=== PATIENT | male | born 1960 | race Caucasian/White ===

== ENCOUNTER 2020-01-09 11:04 | Outpatient (CLI) | payer OTHER, SELFPAY ==
--- NOTE | 2020-01-09 11:19 | MR_ITS ---
WS: [id number] MRI LUMBAR SPINE NONCONTRAST HISTORY: LOW BACK PAIN COMPARISON: None available. TECHNIQUE: Sagittal and axial multisequence imaging is submitted. Increase in upper thoracic kyphosis. Mild degenerative disc disease throughout the cervical and thora cic spine. No cord compression. L3 anterolisthesis by 7.4 mm. Severe disc desiccation and narrowing at the L3-4 level. The L3-4 disc extends cephalad along the posterior L3 vertebral body by 1.5 cm. Marrow edema in the adjacent endpla rachel of L3 and L4. Remaining disc spaces are well preserved with only mild desiccation. Conus terminates normally at L1-2 disc level. L1-L2: Normal. L2-L3: Diffuse annular disc bulging with mild encroachment upon the subarticular recesses. No signifi cant stenosis. L3-L4: Large cephalad disc extrusion greatest to the RIGHT of midline. Disc extrudes posterior to the L3 vertebral body. There is a large central broad-based disc herniation which is causing flattening of the ventral thecal sac and severe bilateral subarticular recess stenosis and moderate bilateral fo raminal stenosis. There is an additional RIGHT foraminal disc protrusion contacting the L3 nerve root . Marked thickening of the ligamentum flavum and fluid in the facet joints. L4-5: Mild annular disc bulging. Broad-based annular fissure beginning in the RIGHT foramen extending far lateral. There is contact and mild flattening of the ventral thecal sac and narrowing of the sub articular recesses and foramina. There is significant clumping of the nerve roots in the thecal sac. L5-S1: Moderate-sized LEFT paracentral disc protrusion with annular fissures. Significant contact on the LEFT S1 nerve root with posterior displacement. LEFT S1 nerve root is enlarged. There is fluid in the facet joints bilaterally. Mild atherosclerosis aorta slight dilatation of the 2.7 cm. MR/MR lumbar spine wo con* [id number] IMPRESSION: 1. Severe degenerative disc disease at L3-4 with grade 1 spondylolisthesis of L3. 2. Large central disc protrusion at L3-4 extends into the subarticular recess with a large extruded component extending cephalad to L3. Additional RIGHT fora jeanine disc protrusion at the L3-4 level. There is severe central, subarticular recess and moderate bilateral foraminal stenosis at this level. 3. Fluid in the facet joints and marked facet arthropathy at L3-4. 4. Below the L3-4 level there is clumping of the nerve roots from arachnoiditi s. 5. Moderate LEFT paracentral disc protrusion with annular fissures at L5-S1 wi th significant contact and displacement of the LEFT S1 nerve root. 6. Mild foraminal subarticular recess stenosis at L4-5.
== END 2020-01-09 11:05 | disposition home or self-care (01) ==
LOC: RADWPI 11:12
PROVIDERS: Family Provider Nurse Practitioner; PCP Nurse Practitioner; Visit Provider Nurse Practitioner
DX: M47.896 Other spondylosis, lumbar region (principal); M51.26 Other intervertebral disc displacement, lumbar region
CPT/HCPCS: 72148

== ENCOUNTER 2020-06-04 08:50 | Outpatient (CLI) | payer OTHER, SELFPAY ==
--- NOTE | 2020-06-04 08:59 | MR_ITS ---
WS: [id number] MRI LUMBAR SPINE NONCONTRAST HISTORY: LOW BACK PAIN COMPARISON: 01/09/2020 TECHNIQUE: Sagittal and axial multisequence imaging is submitted. Increase in cervical lordosis and thoracic kyphosis. Significant straightening of the lumbar lordosis. L3 anterolisthesis by 7 mm is similar to the prior study. Severe disc space narrowing at L3-4 with marrow edema in the posterior L3 vertebral body. No f ractures. The remaining disc spaces are mildly desiccated. Conus terminates normally at L1-2 disc level. L1-L2: Normal. L2-L3: Mild annular disc bulging without stenosis. L3-L4: Annular disc bulging with a large extruded disc protrusion extending cephalad from the disc sp belkis posterior to L3. Severe ligamentum flavum hypertrophy and facet arthropathy with facet arthritis. There is significant central, subarticular recess and foraminal stenosis bilaterally. The extruded d isc is causing significant mass effect upon the L3 and L4 nerve roots. Similar to the prior study. Be low the disc level there is clumping of the nerve roots in the thecal sac from arachnoiditis. L4-L5: Mild annular disc bulging and facet arthritis. Only mild bilateral foraminal narrowing. Again noted is a RIGHT foraminal annular fissures. L5-S1: Annular disc bulging with a moderate-sized central to LEFT paracentral disc protrusion. Associ ated osteophyte is also causing contact on the ventral thecal sac and posterior displacement of the L EFT S1 nerve root. As compared to the prior study no significant change. Atherosclerosis of aorta. Infrarenal aorta measures 2.9 cm. There is additional bulging and increased diameter of the proximal RIGHT common iliac artery 3.1 cm. MR/MR lumbar spine wo con* [id number] IMPRESSION: 1. Continued severe central, subarticular recess and bilateral foraminal steno sis at L3-4 as described on 01/09/2020. 2. Central extruded disc protrusion at L3-4 with significant contact on the L3 and L4 nerve roots. 3. Central to LEFT paracentral moderate disc protrusion at L5-S1 with displace ment of the LEFT S1 nerve root is unchanged. 4. Mild ectasia and dilatation of the infrarenal aorta. 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 Consider follow-up CT angiogram abdominal aorta and common iliac arteries. 5. 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
== END 2020-06-04 08:51 | disposition home or self-care (01) ==
LOC: RADSHAW 08:52
PROVIDERS: PCP Nurse Practitioner; Visit Provider Nurse Practitioner
DX: M48.061 Spinal stenosis, lumbar region without neurogenic claudication (principal); I77.810 Thoracic aortic ectasia; M51.27 Other intervertebral disc displacement, lumbosacral region; I72.3 Aneurysm of iliac artery; G03.9 Meningitis, unspecified
CPT/HCPCS: 72148

== ENCOUNTER → 2020-11-18 16:15 | Outpatient (BNVA) | payer OTHER, SELFPAY | PROVIDERS: PCP Nurse Practitioner; Visit Provider Podiatrist Foot & Ankle Surgery | DX: Q66.02 Congenital talipes equinovarus, left foot (principal); M79.672 Pain in left foot; M25.372 Other instability, left ankle; M19.072 Primary osteoarthritis, left ankle and foot | CPT/HCPCS: 73620; 73630 ==

== ENCOUNTER 2020-11-18 16:34 | Outpatient (CLI) | payer OTHER, SELFPAY | END 2020-11-18 16:35 | disposition home or self-care (01) | LOC: SPT 16:34 | PROVIDERS: PCP Nurse Practitioner; Visit Provider Podiatrist Foot & Ankle Surgery | DX: Z46.89 Encounter for fitting and adjustment of other specified devices (principal); M25.372 Other instability, left ankle | CPT/HCPCS: 97760; L4361 ==

== ENCOUNTER → 2021-01-05 13:50 | Outpatient (BNVA) | payer OTHER, SELFPAY | PROVIDERS: PCP Nurse Practitioner; Visit Provider Internal Medicine | DX: C61 Malignant neoplasm of prostate (principal); E11.65 Type 2 diabetes mellitus with hyperglycemia; E27.8 Other specified disorders of adrenal gland; I10 Essential (primary) hypertension | CPT/HCPCS: 99205 ==

== ENCOUNTER → 2021-02-24 16:09 | Outpatient (BNVA) | payer OTHER, SELFPAY | PROVIDERS: PCP Nurse Practitioner; Visit Provider Podiatrist Foot & Ankle Surgery | DX: M79.672 Pain in left foot (principal); Q66.02 Congenital talipes equinovarus, left foot; M25.372 Other instability, left ankle | CPT/HCPCS: 73610 ==

== ENCOUNTER → 2021-07-24 13:17 | Outpatient (BNVA) | payer OTHER, SELFPAY | PROVIDERS: PCP Nurse Practitioner; Visit Provider Podiatrist Foot & Ankle Surgery | DX: M79.672 Pain in left foot (principal); M25.372 Other instability, left ankle; M19.072 Primary osteoarthritis, left ankle and foot | CPT/HCPCS: 73610; 73630 ==

== ENCOUNTER 2021-08-05 13:09 | Outpatient (CLI) | payer OTHER, MEDICAID, SELFPAY ==
--- NOTE | 2021-08-05 13:30 | CT_ITS ---
WS: [id number] CT scan of the abdomen and pelvis with and without IV contrast. Additional two-dimensional coronal an d sagittal reconstruction was performed. Delayed imaging of 1 minute and 15 minute postinjection was obtained. 08/05/2021 Clinical Data: see if any change in size Comparison: None. DLP: 1863.[address] scans at [facility] use at least one of these dose optimization techniques: automated e xposure control; mA and/or kV adjustment per patient size (includes targeted exams where dose is matc hed to clinical indication); or iterative reconstruction. Findings: The lower lungs show no nodules, masses or effusions. The liver, gallbladder, spleen and pancreas are normal. The right adrenal gland measures 1.5 cm the left 3.0 cm. On the preliminary imaging they both show lo w density. There is little enhancement after the intravenous contrast is given. Both these entities a re probable adenomas. The kidneys show equal bilateral contrast excretion with a nonobstructing 0.3 cm right renal calculus and a left renal cortical cyst. No hydronephrosis or renal masses are seen. Abdominal aorta is johnnie l in size with an aortic stent graft. No appendicitis or diverticulitis is seen. No abscess, adenopathy, ascites, mass, obstruction or free air is seen. The bladder is unremarkable. No inguinal hernia is seen. The patient has a right hip arthroplasty. There is degenerative disc narrowing at L3-L4 and L5-S1 wit h 0.5 cm subluxation of L3 on L4. CT/CT abdomen pelvis wo/w [id number] Impression: 1. Probable bilateral renal adenomas, right measuring 1.5 cm and left 3.0 cm. 2. Negative for acute intra-abdominal or pelvic abnormalities.
[2021-08-05 13:51] LABS: Blood Urea Nitrogen 17 mg/dL (8-23); Glomerular Filtration Rate 56.1 mL/min (90-130)
== END 2021-08-05 13:10 | disposition home or self-care (01) ==
PROVIDERS: PCP Nurse Practitioner; Visit Provider Internal Medicine
DX: E27.8 Other specified disorders of adrenal gland (principal); E11.65 Type 2 diabetes mellitus with hyperglycemia
CPT/HCPCS: 74178; 82565; 84520; Q9967

== ENCOUNTER 2021-09-29 10:03 | Emergency (ER) | payer OTHER, MEDICAID, SELFPAY ==
[2021-09-29 10:08] VITALS: BP 165/93; PULSE 114; RESP 24; TEMP 36.7; O2SAT 88
--- NOTE | 2021-09-29 10:18 | W.ED.SOB ---
Documented by User: CAITLYN Ward 09/29/21 10:55 HPI - SOB/Dyspnea General: Chief Complaint: Shortness of Breath/Dyspnea Stated Complaint: TROUBLE BREATHING/LOW O2/RIGHT LUNG COMPLICATIONS Time Seen by Provider: 09/29/21 10:09 Source: patient and family Mode of arrival: ambulatory Limitations: no limitations History of Present Illness: HPI Narrative: Patient is a nice 60-year-old male with a history of COPD here after he was sent from the [place] for concerns of hypoxia and abnormal CXR findings. Patient tells me he was told by the [place] that his right lung is full . Patient states he normally does not require oxygen for his COPD. He apparently was satting at 85% while at the [place] on room air. Patient tells me they recently switched his COPD inhaler from Spiriva to another inhaler which he does not remember the name of and states it all went downhill from there . He is complaining of shortness of breath at rest and significantly worsens with any form of exertion. No chest pain. He states he feels lousy . He does not complain of nasal congestion, rhinorrhea, significantly worse cough, or fevers. No known sick contacts. He is unvaccinated for COVID. MD elicited complaint: shortness of breath Pertinent past history: COPD Onset (ago): day(s) Timing: constant Severity: moderate Exacerbating factors: exertion Relieving factors: nothing Known history of: COPD Associated symptoms: Reports dizziness and myalgias; Deny abdominal pain, chest pain, fever(s), hemoptysis, lightheadedness, nausea, palpitations, syncope or vomiting Treatment prior to arrival: none Related Data: Home oxygen amount: none Review of Systems Const: Reports: body aches, fatigue and malaise; Denies: fever(s) or chills Eyes: Denies: change in vision or blurry vision ENMT: Denies: throat pain, odynophagia, nasal discharge or nasal congestion Card: Reports: dyspnea on exertion; Denies: chest pain, palpitations, irregular heart rhythm, edema, swelling of feet/ankles, lightheadedness, syncope, pre-syncope or leg pain with exertion Resp: Reports: dyspnea; Denies: wheezing or hemoptysis GI: Denies: abdominal pain, nausea, vomiting or diarrhea Musc: Denies: neck pain or back pain Skin/Breast: Denies: rash Neuro: Reports: dizziness; Denies: headache(s) PFSH ED PFSH: Medical History COPD (chronic obstructive pulmonary disease) Emphysema lung Hernia Hypertension Prostate cancer Thoracic stomach hernia Surgical History H/O exploratory thoracotomy H/O heart surgery History of right hip replacement History of surgery on upper extremity Family History Mother Cancer Father CAD (coronary artery disease) Social History Quit status (tobacco): not considering quitting Second hand smoke exposure: Yes Smoking risk assessment/counseling performed?: Yes Alcohol intake: current Alcohol intake frequency: few times a week Alcohol type: beer Desire information about alcohol rehabilitation?: No Counseling given: Yes Desire information about substance/drug rehabilitation?: No Counseling given: Yes Adopted: Yes Caregiver/support person: No Lives independently: Yes Household members: none Housing: Apartment Marital status: Single Number of children: 0 Highest education level completed: GED or Equivalent service: Yes Current occupational status: disabled Pets and animals: Yes History of recent travel: No Leisure activites: sports, exercise, clubs, art, music, games, hunting, fishing, reading and volunteer work Sexually active: Yes Current gender identity: Male Pratima/Mandaeism: [employer] Special pratima needs: No Agree to transfusion: Yes Financial difficulty paying for basics: Not Very Hard Physical Exam Const: COMMON NORMALS: average body habitus, patient oriented x3, no limitations, healthy appearing, alert and well nourished GENERAL APPEARANCE: cooperative and in distress (respiratory failure with hypoxia; pt is tachycardic and hypoxic on RA) ORIENTATION/CONSCIOUSNESS: Yes awake, Yes oriented to person, Yes oriented to place and Yes oriented to time HENMT: COMMON NORMALS: normocephalic and atraumatic HEAD & SCALP: normocephalic and atraumatic Resp: COMMON NORMALS: normal respiratory effort and clear to auscultation bilaterally AUSCULTATION: clear to auscultation bilaterally OTHER: pt 88% on RA; placed on 2L NC and now at 93% Cardio: COMMON NORMALS: regular rhythm RATE: tachycardic RHYTHM: regular rhythm Extremity: COMMON NORMALS: normal to inspection and no calf tenderness Neuro: KACEY COMA SCALE: document GCS findings [place] coma scale eye opening: Spontaneous [place] coma scale verbal response: Orientated Kacey coma scale motor response: Obey commands [place] coma scale total score: 15 COMMON NORMALS: patient oriented x3 SENSORIUM/ORIENTATION: Yes alert, Yes oriented to person, Yes oriented to place and Yes oriented to time Skin: COMMON NORMALS: no rashes or lesions noted GENERAL SKIN EXAM: no rashes or lesions noted Course Vital Signs: Vital signs: Vital Signs Temperature 98.0 F 09/29/21 10:08 Pulse Rate 114 H 09/29/21 10:08 Respiratory Rate 24 H 09/29/21 10:08 Blood Pressure 165/93 09/29/21 10:08 Pulse Oximetry 88 L 09/29/21 10:08 MDM - SOB/Dyspnea MDM Narrative: Medical decision making narrative: Patient will be signed out to Dr. Xavier as he is an ALEC 2. Lab Data: Labs: Lab Results 09/29/21 09/29/21 09/29/21 10:42 10:42 10:42 WBC 12.2 10^3/uL H 10 ^3/uL (4.0-10.0) RBC 5.14 10^6/uL 10^6 /uL (4.1-5.3) Hgb 15.1 g/dL g/dL (11.7-16.6) Hct 46.0 % % (42.0-52.0) MCV 89.5 fl fl (80-94) MCH 29.4 pg pg (28.0-34.0) MCHC 32.8 g/dL g/dL (30.0-36.0) RDW 13.4 % % (12.1-15.1) Plt Count 271 10^3/cmm 10^3 /cmm (130-400) MPV 10.1 fL fL (7.4-10.4) Neut % (Auto) 53.5 % % Lymph % (Auto) 33.3 % % [place] % (Auto) 8.5 % % Eos % (Auto) 3.7 % % Baso % (Auto) 0.6 % % Neut # (Auto) 6.51 10^3/uL 10^3 /uL (1.8-7.7) Lymph # (Auto) 4.1 10^3/uL 10^3/ uL (0.8-4.8) [place] # (Auto) 1.0 10^3/uL H 10^ 3/uL (0.2-0.9) Eos # (Auto) 0.5 10^3/uL 10^3/ uL (0.0-0.8) Baso # (Auto) 0.1 10^3/uL 10^3/ uL (0.0-0.1) Nucleated RBC % (a uto) 0 % % Nucleated RBCs # 0.0 /100WBC /100W BC Sodium 139 mmol/L mmol/L (136-145) Potassium 3.8 mmol/L mmol/L (3.5-5.1) Chloride 101 mmol/L mmol/L (98-107) Carbon Dioxide 25 mmol/L mmol/L (22-29) Anion Gap 16.8 (5-19) BUN 20 mg/dL mg/dL (8-23) Creatinine 1.4 mg/dL H mg/dL (0.7-1.2) GFR Calculation 51.5 mL/min L mL/ min (90-130) Glucose 148 mg/dL H mg/dL (65-115) Calculated Osmolal ity 293 mOsm/kg mOsm/ kg (285-295) Lactic Acid 0.7 mmol/L mmol/L (0.5-2.2) Calcium 8.8 mg/dL mg/dL (8.5-10.5) Total Bilirubin 0.2 mg/dL mg/dL (0.15-1.2) AST 23 U/L U/L (0-40) ALT 19 U/L U/L (0-41) Alkaline Phosphata se 116 IU/L IU/L (40-130) Troponin T Baselin e Troponin T [address] [place] Troponin T Total Protein 6.5 g/dL L g/dL (6.6-8.7) Albumin 3.9 g/dL g/dL (3.5-5.2) Globulin 2.6 g/dL g/dL (1.3-4.6) Procalcitonin 3.78 ng/mL H ng/m L (0-0.5) SARS-CoV-2 Ag (Rap id) 09/29/21 09/29/21 09/29/21 10:42 11:30 12:06 WBC RBC Hgb Hct MCV MCH MCHC RDW Plt Count MPV Neut % (Auto) Lymph % (Auto) [place] % (Auto) Eos % (Auto) Baso % (Auto) Neut # (Auto) Lymph # (Auto) [place] # (Auto) Eos # (Auto) Baso # (Auto) Nucleated RBC % (a uto) Nucleated RBCs # Sodium Potassium Chloride Carbon Dioxide Anion Gap BUN Creatinine GFR Calculation Glucose Calculated Osmolal ity Lactic Acid Calcium Total Bilirubin AST ALT Alkaline Phosphata se Troponin T Baselin e 43 ng/L H ng/L (0-15) Troponin T [address] [place] 41.39 ng/L H ng/L (0-15) Delta Troponin T -1.61 ABS# L ABS# (0-10) Total Protein Albumin Globulin Procalcitonin SARS-CoV-2 Ag (Rap id) Negative (Negative) Imaging Data^: CXR: Radiologist's impression: [address] [id number] ReportSigned Patient: Theodora Sanchez #: [id number]: 1960Acct#:[id number]/Sex: 60 / MADM Date: 09/29/21Loc: [facility]/Bed:Attending Dr: Ordering Provider/Ordering MD: Bianca Gray Date of Service: 09/29/21 Procedure(s): XR chest 1V portable [id number] Accession Number(s): [id number] Report Number: [id number] PROCEDURE INFORMATION: Exam: XR Chest Exam date and time: 09/29/2021 10:17 AM Age: 60 years old Clinical indication: Condition or disease; Lung condition and disease; Copd; Complications not specified; Additional info: Hypoxia, copd TECHNIQUE: Imaging protocol: XR of the chest. Views: 1 view. COMPARISON: CT abdomen pelvis wo/w [id number] 08/05/2021 1:56 PM FINDINGS: Lungs: A few small benign calcified granulomas are present in the lungs. There are no acute pulmonary infiltrates. Pleural spaces: Unremarkable. No pleural effusion. No pneumothorax. Heart/Mediastinum: The heart is not enlarged for the AP projection. Benign calcified lymph nodes are present in the pulmonary garima and mediastinum. Bones/joints: Unremarkable. XR/XR chest 1V portable [id number] IMPRESSION: No acute abnormalities are seen in the chest. Radiation Dose CTDIVOL = (mGy): DLP = (mGy-cm) Dictated By:Juventino Verdugo By:Juventino Verdugo Date/Time:09/29/21 1054DD/ 1017 Discharge Plan Discharge Patient Disposition: Left Against Medical Advice Clinical Impression: Hypoxia, COPD (chronic obstructive pulmonary disease), Clinical diagnosis of COVID-19 Prescriptions: No Action (DME) Non Articulating AFO See Rx Instructions .Route .MEDSUPPLY Qty: 1 RF: 0 (DME) Accu-Chek SmartView Test Strip Strip See Rx Instructions .Route Qty: 100 RF: 3 amlodipine 10 mg tablet 10 mg PO QAM RF: 0 omeprazole 40 mg capsule,delayed release(DR/EC) 40 mg PO DAILY RF: 0 multivitamin Tablet 1 tab PO DAILY RF: 0 hydrochlorothiazide 25 mg tablet 25 mg PO QAM RF: 0 (DME) non articulating AFO See Rx Instructions .Route .MEDSUPPLY Qty: 1 RF: 0 (DME) Diabetic shoes with inserts See Rx Instructions .Route .MEDSUPPLY Qty: 1 RF: 0 (DME) cam boot See Rx Instructions .Route .MEDSUPPLY Qty: 1 RF: 0 Lantus U-100 Insulin 100 unit/mL solution 36 unit SUBCUT QAM RF: 0 (DME) Crutch bottoms bilaterally See Rx Instructions .Route .MEDSUPPLY Qty: 1 RF: 0 (DME) Diabetic shoes See Rx Instructions .Route .MEDSUPPLY Qty: 1 RF: 0 celecoxib 200 mg Capsule 200 mg PO BID RF: 0 Advair Diskus 250-50 mcg/dose Blister With Device 1 inh INHALATION BID RF: 0 allopurinol 100 mg Tablet 100 mg PO DAILY RF: 0 sildenafil 100 mg Tablet 100 mg PO PRN PRN (Reason: Erectile Dysfunction) RF: 0 metformin 1,000 mg Tablet 500 mg PO QAM RF: 0 gabapentin 100 mg Capsule 100 mg PO TID RF: 0 albuterol sulfate 90 mcg/actuation Hfa Aerosol Inhaler 2 puff INHALATION QID PRN (Reason: Shortness Of Breath) RF: 0 Vitamin D3 25 mcg (1,000 unit) Capsule 25 mcg PO DAILY RF: 0 Fish Oil Capsule 500 mg PO BID RF: 0 Referrals: [facility] [Primary Care Provider] - Sign Out Sign Out Data: Patient Sign Out occurred on 09/29/21 at 10:40. Patient's care was discussed, and care was transferred from to Rodney Xavier DO. Coding Level of Care Code ED Equipment Operat0R for Chg Fwd Exam Detailed Documented by User: Rodney Xavier DO 10/05/21 15:10 HPI - SOB/Dyspnea General: Chief Complaint: Shortness of Breath/Dyspnea Stated Complaint: TROUBLE BREATHING/LOW O2/RIGHT LUNG COMPLICATIONS Time Seen by Provider: 09/29/21 10:09 PFSH ED PFSH: Medical History COPD (chronic obstructive pulmonary disease) Emphysema lung Hernia Hypertension Prostate cancer Thoracic stomach hernia Surgical History H/O exploratory thoracotomy H/O heart surgery History of right hip replacement History of surgery on upper extremity Family History Mother Cancer Father CAD (coronary artery disease) Social History Quit status (tobacco): not considering quitting Second hand smoke exposure: Yes Smoking risk assessment/counseling performed?: Yes Alcohol intake: current Alcohol intake frequency: few times a week Alcohol type: beer Desire information about alcohol rehabilitation?: No Counseling given: Yes Desire information about substance/drug rehabilitation?: No Counseling given: Yes Adopted: Yes Caregiver/support person: No Lives independently: Yes Household members: none Housing: Apartment Marital status: Single Number of children: 0 Highest education level completed: GED or Equivalent service: Yes Current occupational status: disabled Pets and animals: Yes History of recent travel: No Leisure activites: sports, exercise, clubs, art, music, games, hunting, fishing, reading and volunteer work Sexually active: Yes Current gender identity: Male Pratima/Mandaeism: [employer] Special pratima needs: No Agree to transfusion: Yes Financial difficulty paying for basics: Not Very Hard Course Vital Signs: Vital signs: Vital Signs Temperature 98.0 F 09/29/21 10:08 Pulse Rate 114 H 09/29/21 10:08 Respiratory Rate 24 H 09/29/21 10:08 Blood Pressure 165/93 09/29/21 10:08 Pulse Oximetry 88 L 09/29/21 10:08 MDM - SOB/Dyspnea MDM Narrative: Medical decision making narrative: Care assumed from Bianca Gray due to presumed diagnosis. His oxygen saturations are low respected COVID will need to be admitted patient became frustrated he felt he should only have a chest x-ray and be able to leave discussed with him was concerned he had COVID that he was needing oxygen that he should stay he does not want to stay, and I was unable to convince him not to leave. Ultimately he left AGAINST MEDICAL ADVICE. Lab Data: Labs: Lab Results 09/29/21 09/29/21 09/29/21 10:42 10:42 10:42 WBC 12.2 10^3/uL H 10 ^3/uL (4.0-10.0) RBC 5.14 10^6/uL 10^6 /uL (4.1-5.3) Hgb 15.1 g/dL g/dL (11.7-16.6) Hct 46.0 % % (42.0-52.0) MCV 89.5 fl fl (80-94) MCH 29.4 pg pg (28.0-34.0) MCHC 32.8 g/dL g/dL (30.0-36.0) RDW 13.4 % % (12.1-15.1) Plt Count 271 10^3/cmm 10^3 /cmm (130-400) MPV 10.1 fL fL (7.4-10.4) Neut % (Auto) 53.5 % % Lymph % (Auto) 33.3 % % [place] % (Auto) 8.5 % % Eos % (Auto) 3.7 % % Baso % (Auto) 0.6 % % Neut # (Auto) 6.51 10^3/uL 10^3 /uL (1.8-7.7) Lymph # (Auto) 4.1 10^3/uL 10^3/ uL (0.8-4.8) [place] # (Auto) 1.0 10^3/uL H 10^ 3/uL (0.2-0.9) Eos # (Auto) 0.5 10^3/uL 10^3/ uL (0.0-0.8) Baso # (Auto) 0.1 10^3/uL 10^3/ uL (0.0-0.1) Nucleated RBC % (a uto) 0 % % Nucleated RBCs # 0.0 /100WBC /100W BC Sodium 139 mmol/L mmol/L (136-145) Potassium 3.8 mmol/L mmol/L (3.5-5.1) Chloride 101 mmol/L mmol/L (98-107) Carbon Dioxide 25 mmol/L mmol/L (22-29) Anion Gap 16.8 (5-19) BUN 20 mg/dL mg/dL (8-23) Creatinine 1.4 mg/dL H mg/dL (0.7-1.2) GFR Calculation 51.5 mL/min L mL/ min (90-130) Glucose 148 mg/dL H mg/dL (65-115) Calculated Osmolal ity 293 mOsm/kg mOsm/ kg (285-295) Lactic Acid 0.7 mmol/L mmol/L (0.5-2.2) Calcium 8.8 mg/dL mg/dL (8.5-10.5) Total Bilirubin 0.2 mg/dL mg/dL (0.15-1.2) AST 23 U/L U/L (0-40) ALT 19 U/L U/L (0-41) Alkaline Phosphata se 116 IU/L IU/L (40-130) Troponin T Baselin e Troponin T [address] [place] Troponin T Total Protein 6.5 g/dL L g/dL (6.6-8.7) Albumin 3.9 g/dL g/dL (3.5-5.2) Globulin 2.6 g/dL g/dL (1.3-4.6) Procalcitonin 3.78 ng/mL H ng/m L (0-0.5) SARS-CoV-2 Ag (Rap id) 09/29/21 09/29/21 09/29/21 10:42 11:30 12:06 WBC RBC Hgb Hct MCV MCH MCHC RDW Plt Count MPV Neut % (Auto) Lymph % (Auto) [place] % (Auto) Eos % (Auto) Baso % (Auto) Neut # (Auto) Lymph # (Auto) [place] # (Auto) Eos # (Auto) Baso # (Auto) Nucleated RBC % (a uto) Nucleated RBCs # Sodium Potassium Chloride Carbon Dioxide Anion Gap BUN Creatinine GFR Calculation Glucose Calculated Osmolal ity Lactic Acid Calcium Total Bilirubin AST ALT Alkaline Phosphata se Troponin T Baselin e 43 ng/L H ng/L (0-15) Troponin T [address] [place] 41.39 ng/L H ng/L (0-15) Delta Troponin T -1.61 ABS# L ABS# (0-10) Total Protein Albumin Globulin Procalcitonin SARS-CoV-2 Ag (Rap id) Negative (Negative) Discharge Plan Discharge Patient Disposition: Left Against Medical Advice Clinical Impression: Hypoxia, COPD (chronic obstructive pulmonary disease), Clinical diagnosis of COVID-19 Prescriptions: No Action (DME) Non Articulating AFO See Rx Instructions .Route .MEDSUPPLY Qty: 1 RF: 0 (DME) Accu-Chek SmartView Test Strip Strip See Rx Instructions .Route Qty: 100 RF: 3 amlodipine 10 mg tablet 10 mg PO QAM RF: 0 omeprazole 40 mg capsule,delayed release(DR/EC) 40 mg PO DAILY RF: 0 multivitamin Tablet 1 tab PO DAILY RF: 0 hydrochlorothiazide 25 mg tablet 25 mg PO QAM RF: 0 (DME) non articulating AFO See Rx Instructions .Route .MEDSUPPLY Qty: 1 RF: 0 (DME) Diabetic shoes with inserts See Rx Instructions .Route .MEDSUPPLY Qty: 1 RF: 0 (DME) cam boot See Rx Instructions .Route .MEDSUPPLY Qty: 1 RF: 0 Lantus U-100 Insulin 100 unit/mL solution 36 unit SUBCUT QAM RF: 0 (DME) Crutch bottoms bilaterally See Rx Instructions .Route .MEDSUPPLY Qty: 1 RF: 0 (DME) Diabetic shoes See Rx Instructions .Route .MEDSUPPLY Qty: 1 RF: 0 celecoxib 200 mg Capsule 200 mg PO BID RF: 0 Advair Diskus 250-50 mcg/dose Blister With Device 1 inh INHALATION BID RF: 0 allopurinol 100 mg Tablet 100 mg PO DAILY RF: 0 sildenafil 100 mg Tablet 100 mg PO PRN PRN (Reason: Erectile Dysfunction) RF: 0 metformin 1,000 mg Tablet 500 mg PO QAM RF: 0 gabapentin 100 mg Capsule 100 mg PO TID RF: 0 albuterol sulfate 90 mcg/actuation Hfa Aerosol Inhaler 2 puff INHALATION QID PRN (Reason: Shortness Of Breath) RF: 0 Vitamin D3 25 mcg (1,000 unit) Capsule 25 mcg PO DAILY RF: 0 Fish Oil Capsule 500 mg PO BID RF: 0 Referrals: [facility] [Primary Care Provider] - Sign Out Sign Out Data: Patient Sign Out occurred on 09/29/21 at 10:40. Patient's care was discussed, and care was transferred from to Rodney aXvier DO. Coding Level of Care Code ED Equipment Operat0R for Chg Fwd Exam Detailed
--- NOTE | 2021-09-29 10:28 | ECG_ITS ---
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 Measurements Intervals [place] Rate: 105 P: 55 CO: 160 QRS: 56 QRSD: 93 T: 74 QT: 381 QTc: 504 Interpretive Statements SINUS TACHYCARDIA POSSIBLE LEFT ATRIAL ENLARGEMENT [-0.1mV P-WAVE IN V1/V2] ABNORMAL RHYTHM ECG No previous ECG available for comparison Electronically Signed On 09-29-2021 17:56:58 [employer] by Narda Ann M.D. [id number]
[2021-09-29 10:51] LABS: Basophils # 0.1 10^3/uL (0.0-0.1); Basophils % 0.6 %; Eosinophils # 0.5 10^3/uL (0.0-0.8); Eosinophils % 3.7 %; Hemoglobin 15.1 g/dL (11.7-16.6); Lymphocytes # 4.1 10^3/uL (0.8-4.8); Lymphocytes % 33.3 %; Mean Corpuscular HGB Conc 32.8 g/dL (30.0-36.0); Mean Corpuscular Hemoglobin 29.4 pg (28.0-34.0); Mean Corpuscular Volume 89.5 fl (80-94); Mean Platelet Volume 10.1 fL (7.4-10.4); Monocytes % 8.5 %; Neutrophils # 6.51 10^3/uL (1.8-7.7); Neutrophils % 53.5 %; Nucleated Red Blood Cells % 0 %; Platelet Count 271 10^3/cmm (130-400); Red Blood Count 5.14 10^6/uL (4.1-5.3); Red Cell Distribution Width 13.4 % (12.1-15.1); White Blood Count 12.2 10^3/uL (4.0-10.0)
[2021-09-29 11:07] LABS: Lactic Sepsis W/Reflex 0.7 mmol/L (0.5-2.2)
[2021-09-29 11:09] LABS: Alanine Aminotransferase 19 U/L (0-41); Albumin Level 3.9 g/dL (3.5-5.2); Alkaline Phosphatase 116 IU/L (40-130); Aspartate Amino Transferase 23 U/L (0-40); Blood Urea Nitrogen 20 mg/dL (8-23); Calcium 8.8 mg/dL (8.5-10.5); Carbon Dioxide 25 mmol/L (22-29); Chloride 101 mmol/L (98-107); Globulin 2.6 g/dL (1.3-4.6); Glomerular Filtration Rate 51.5 mL/min (90-130); Glucose 148 mg/dL (65-115); Osmolality Calculated 293 mOsm/kg (285-295); Sodium 139 mmol/L (136-145); Total Bilirubin 0.2 mg/dL (0.15-1.2); Total Protein 6.5 g/dL (6.6-8.7)
[2021-09-29 11:16] LABS: Procalcitonin 3.78 ng/mL (0-0.5)
[2021-09-29 11:17] LABS: Anion Gap 16.8 (5-19); Potassium 3.8 mmol/L (3.5-5.1); Troponin(5th) Baseline 43 ng/L (0-15)
--- NOTE | 2021-09-29 11:31 | PC.PHAR ---
pt states he takes care of his own medications-pt states he takes the medications entered-pts va med list had the pt takes niacin er 500mg bid pt states he doesnt take that medication-pt states he uses 36 units qam of lantus pts va med list has 32 units daily and 65 units daily pt states his blood sugar had been all over the place but states he is now using 36 units qam
[2021-09-29 11:50] LABS: Slide Review Slide Review Perform
[2021-09-29 12:56] LABS: Troponin 5 2HR 41.39 ng/L (0-15)
[2021-09-29 13:02] LABS: Troponin 5 2HR Delta -1.61 ABS# (0-10)
[2021-09-29 13:15] LABS: SARS Covid-2 Antigen Negative (Negative)
== END 2021-09-29 12:40 | disposition left against medical advice (07) ==
PROVIDERS: Physician Assistant; Emergency Provider Family Medicine
DX: U07.1 COVID-19 (principal); J44.9 Chronic obstructive pulmonary disease, unspecified; R09.02 Hypoxemia; Z79.84 Long term (current) use of oral hypoglycemic drugs; Z79.4 Long term (current) use of insulin; Z53.21 Procedure and treatment not carried out due to patient leaving prior to being seen by health care provider; I10 Essential (primary) hypertension; Z85.46 Personal history of malignant neoplasm of prostate; Z77.22 Contact with and (suspected) exposure to environmental tobacco smoke (acute) (chronic)
CPT/HCPCS: 71045; 80053; 83605; 84145; 84484; 85025; 87426; 93005; 99283

== ENCOUNTER 2022-01-20 14:01 | Outpatient (CLI) | payer OTHER, MEDICAID, SELFPAY | END 2022-01-20 14:02 | disposition home or self-care (01) | LOC: SPT 14:02 | PROVIDERS: Visit Provider Podiatrist Foot & Ankle Surgery | DX: Z46.89 Encounter for fitting and adjustment of other specified devices (principal); M25.373 Other instability, unspecified ankle; Q66.02 Congenital talipes equinovarus, left foot | CPT/HCPCS: 97760; L4361 ==

== ENCOUNTER → 2022-03-17 08:14 | Outpatient (BNVA) | payer OTHER, MEDICAID, SELFPAY | PROVIDERS: Visit Provider Podiatrist Foot & Ankle Surgery | DX: Q66.02 Congenital talipes equinovarus, left foot (principal); L84 Corns and callosities; M25.373 Other instability, unspecified ankle; Q66.30 Other congenital varus deformities of feet, unspecified foot; M25.372 Other instability, left ankle; F17.200 Nicotine dependence, unspecified, uncomplicated; S80.811A Abrasion, right lower leg, initial encounter; Y99.9 Unspecified external cause status | CPT/HCPCS: 99213; 99214 ==

== ENCOUNTER 2022-03-26 13:41 | Outpatient (CLI) | payer OTHER, MEDICAID, SELFPAY ==
--- NOTE | 2022-03-26 13:30 | CT_ITS ---
WS: [id number] Exam: CT foot LT wo con* [id number] Date/Time of Exam: 03/26/2022 2:12 PM Reason For Exam: Left foot surgical planning DLP: 125.[address] scans at [facility] use at least one of these dose optimization techniques: automated e xposure control; mA and/or kV adjustment per patient size (includes targeted exams where dose is matc hed to clinical indication); or iterative reconstruction. There is marked subcutaneous edema of the foot. No definite discrete abscess is seen. Several tendon sheaths about the foot and ankle are distended with fluid. The peroneus tendon sheath is distended wi th fluid. There is advanced degenerative change of the ankle mortise with [id number]. Subcortical c yst formation in the tarsal bones. No obvious acute fracture. No obvious bone destruction. Relatively extensive soft tissue edema over the lateral aspect of the foot. Flexion deformity of the second thr ough the fifth toes. CT/CT foot LT wo con* [id number] IMPRESSION: 1. Pronounced soft tissue edema and subcutaneous fluid. A definite discrete abs cess is not seen. Tendon sheath fluid collections about the foot and ankle. 2. No fracture or bone destruction. 3. Advanced degenerative change of the ankle mortise with [id number]. Flexion deformity of the second through the fifth toes. Subcortical cyst formation in the tarsal bones.
== END 2022-03-26 13:42 | disposition home or self-care (01) ==
LOC: RAD 13:42
PROVIDERS: PCP Nurse Practitioner; Visit Provider Podiatrist Foot & Ankle Surgery
DX: L84 Corns and callosities (principal); M25.373 Other instability, unspecified ankle; Q66.02 Congenital talipes equinovarus, left foot; M21.271 Flexion deformity, right ankle and toes
CPT/HCPCS: 73700

== ENCOUNTER → 2022-05-13 11:36 | Outpatient (BNVA) | payer OTHER, MEDICAID, SELFPAY | PROVIDERS: PCP Nurse Practitioner; Visit Provider Podiatrist Foot & Ankle Surgery | DX: M79.672 Pain in left foot (principal); L84 Corns and callosities; S80.811A Abrasion, right lower leg, initial encounter; X58.XXXA Exposure to other specified factors, initial encounter; Q66.32 Other congenital varus deformities of feet, left foot; M25.372 Other instability, left ankle; Q66.02 Congenital talipes equinovarus, left foot | CPT/HCPCS: 99214 ==

== ENCOUNTER → 2023-01-03 08:11 | Outpatient (BNVA) | payer OTHER, SELFPAY | PROVIDERS: PCP Nurse Practitioner; Visit Provider Podiatrist Foot & Ankle Surgery | DX: Q66.32 Other congenital varus deformities of feet, left foot (principal); F17.210 Nicotine dependence, cigarettes, uncomplicated; L84 Corns and callosities; M25.372 Other instability, left ankle; Q66.02 Congenital talipes equinovarus, left foot; M19.072 Primary osteoarthritis, left ankle and foot | CPT/HCPCS: 99214 ==

== ENCOUNTER 2023-01-28 07:06 | Day surgery (SDC) | payer OTHER, MEDICAID, SELFPAY ==
[2023-01-27 09:33] VITALS: BMI 31.5
[2023-01-28] VITALS (9 sets, daily range): BP systolic 142–169; BP diastolic 72–107; PULSE 97–118; RESP 16–20; TEMP 36.1–36.6; O2SAT 86–97
--- NOTE | 2023-01-28 07:23 | ECG_ITS ---
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 Measurements Intervals [place] Rate: 102 P: 62 [place]: 181 QRS: 31 QRSD: 90 T: 63 QT: 342 QTc: 446 Interpretive Statements SINUS TACHYCARDIA Compared to ECG 09/29/2021 10:33:25 No significant changes Electronically Signed On 01-28-2023 15:55:04 CDT by Ferdinand Perez M.D. [id number]
[2023-01-28] MEDS: sodium chloride 0.9% 1,000 ML 30 ML IV (07:36)
[2023-01-28 07:47] LABS: Basophils # 0.1 10^3/uL (0.0-0.1); Basophils % 0.4 %; Eosinophils # 0.5 10^3/uL (0.0-0.8); Eosinophils % 4.6 %; Hematocrit 43.2 % (42.0-52.0); Hemoglobin 13.2 g/dL (11.7-16.6); Lymphocytes % 35.4 %; Mean Corpuscular HGB Conc 30.6 g/dL (30.0-36.0); Mean Corpuscular Hemoglobin 27.6 pg (28.0-34.0); Mean Corpuscular Volume 90.2 fl (80-94); Mean Platelet Volume 9.3 fL (7.4-10.4); Monocytes # 0.8 10^3/uL (0.2-0.9); Monocytes % 7.2 %; Neutrophils % 51.9 %; Nucleated Red Blood Cells % 0 %; Platelet Count 241 10^3/cmm (130-400); Red Blood Count 4.79 10^6/uL (4.1-5.3); Red Cell Distribution Width 13.8 % (12.1-15.1); White Blood Count 11.2 10^3/uL (4.0-10.0)
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
[2023-01-28 08:06] LABS: Anion Gap 11.6 (5-19); Blood Urea Nitrogen 15 mg/dL (8-23); Calcium 9.6 mg/dL (8.5-10.5); Carbon Dioxide 31 mmol/L (22-29); Chloride 97 mmol/L (98-107); Glomerular Filtration Rate 55.8 mL/min (90-130); Glucose 196 mg/dL (65-115); Osmolality Calculated 286 mOsm/kg (285-295); Potassium 4.6 mmol/L (3.5-5.1); Sodium 135 mmol/L (136-145)
--- NOTE | 2023-01-28 08:06 | W.PM.OPSUD ---
Surgery/Procedure H&P Update DATE OF PROCEDURE: January 28, 2023 DATE H&P PERFORMED: 01/03/23 CHANGES TO PREVIOUS DOCUMENTATION: none PREOP DIAGNOSIS: Left instability. Traumatic arthritis left ankle. PLANNED PROCEDURE: Operation Date: 01/28/23 08:20 Proposed Procedures p Left ankle fusion/Left subtalar joint fusion 73604, 74867,M25.372,S93.05XS ANESTHESIA/POPLOCK(Left) - Casimiro Blue DPM
--- NOTE | 2023-01-28 08:12 | ANES.PROC ---
Anesthesia Procedures Procedure/Date: 01/28/23 Nerve Block ^: Nerve Block 1: Main Anesthesia: general anesthesia Time Out Performed: Yes Consent: requested by attending/covering physician, from patient, from other, risks and benefits reviewed and patient agrees to proceed Nerve block location: popliteal (L) Anesthesia monitors applied: pulse oximetry, EKG, BP cuff and oxygen Nerve block position: supine Anesthetic Used: ropivicaine 0.5% (30 ml) and with decadron (4 mg) Ultrasound used to: recognize landmarks Nerve Stimulator Used?: No Interscalene/Femoral BLK: 4 stimuplex 21 g needle used for position and inplane approach, visualize local anesthetic spread and no vascular puncture identified Injection: neg aspiration of heme Patient Tolerated Procedure: well Complications: none
[2023-01-28] MEDS: ceFAZolin 2,000 MG in sodium chloride 0.9% (plus) 50 ML 100 MG IV (08:32)
[2023-01-28 11:42] LABS: Glucose Point of Care 212 mg/dL (70-110)
[2023-01-28 11:42] LABS: Glucose Point of Care 191 mg/dL (70-110)
--- NOTE | 2023-01-28 11:48 | PM.OP ---
Operative Report Date of procedure: January 28, 2023 Pre-op diagnosis: Preop Diagnosis Left instability. Traumatic arthritis left ankle.
--- NOTE | 2023-01-28 11:49 | XR_ITS ---
WS: [id number] XR ankle LT min 3V* [id number] REASON FOR EXAM: OR PICS FINDINGS: Anterior plate and screw arthrodesis of the tibiotalar joint. Normal bone and joint alignment. Surgical appliance in proper position and alignment. XR/XR ankle LT min 3V* [id number] IMPRESSION: Arthrodesis left ankle as above.
--- NOTE | 2023-01-28 12:06 | ANE.PACU2 ---
Inpatient post-anesthesia follow up: Airway intact: Yes Vital signs: Temperature 97.0 F Pulse Rate 118 Respiratory Rate 20 Blood Pressure 155/81 Pulse Oximetry 88 Oxygen Delivery Me thod Room Air Oxygen Flow Rate 6 Fraction of Inspir ed Oxygen Hydration adequate: Yes Nausea and vomiting: No Pain level: 1 Mental status: Baseline
--- NOTE | 2023-01-28 12:20 | SUR.PHASEII ---
Oxygen Patient reports he wears O2 at home when he needs it and can measure oxygen with oximeter. Patient states his oxygen is always low . O2 with 2L on is 90-91%.
--- NOTE | 2023-02-07 07:58 | PM.OP ---
Operative Report Date of procedure: December Pre-op diagnosis: Preop Diagnosis Left instability. Traumatic arthritis left ankle. Post-op diagnosis: Left ankle instability. Posttraumatic arthritis left ankle. Post-op findings: Arthrosis of the left ankle joint. Gross instability of the left ankle with talus and varus position. Procedure done: Left ankle joint fusion. CPT code 87195 Implants: Caruthers 28 anterior talofibular contoured plate with locking screws. Specimens removed/disposition: None Pathology: None Surgeon: Casimiro Blue D.P.M. Distributor Advertising Material: Kalia Estimated blood loss: 25 120 minutes IV fluids: 0 Urine output: None Complications: None Brief History: Patient having difficulty with advanced bracing been able to accommodate regular shoe and activities without rubbing and causing pressure points.? He states that he is done with the conservative approach he is requesting surgical amputation versus reconstruction and straightening out his leg.? Informed him he will need to quit smoking and at that point would consider tibial talocalcaneal arthrodesis with intramedullary nailing however current everyday smoking would decrease healing rates he states he is interested in quitting smoking anyways.? He has made significant improvement with smoking cessation.? He is requesting surgical intervention to be scheduled at next available opportunity now that his A1c is below 8.0 he would like to proceed.? I reviewed at length with the patient, the risks, potential complications, benefits, alternatives, expectations, and typical outcomes associated with the surgery. The risks and potential complications were explained in detail, including but not limited to infection, wound dehiscence or soft tissue complications, bleeding and hematoma, chronic edema, neuritis or nerve damage producing numbness or chronic pain, CRPS, failure to relieve pain or worsening pain, thick / painful / unsightly scar, limited motion / stiffness, malposition, delayed union, malunion, or nonunion, fracture, reaction to implants, anesthetic complications, venous thromboembolism, and deformity recurrence.? I discussed the notion of no regrets with the patient as it pertains to complications and outcomes. The patient seemed to understand the nature of the proposed care and required convalescence. They asked appropriate questions, answered to their satisfaction. They are aware no guarantees can be made as to a satisfactory outcome and they understand there may be other possible unforeseen complications or outcomes not listed here that will be treated accordingly if they arise. There were no written or implied guarantees given to the patient. They gave informed consent to proceed. Left ankle signed by patient myself, informed consent signed by patient and myself. Is aware that this will be a staged procedure. Given his comorbidities would like to start with ankle fusion and then progress potential subtalar joint and forefoot correction for residual deformity after he show signs of healing from the ankle fusion. Procedure: Under mild sedation the patient was brought to the operating room and placed on the operating table in supine position. A timeout was performed. Anesthesia was then administered by the anesthesia service. Left popliteal block was administered per anesthesia preoperatively. Well-padded pneumatic tourniquet applied to the patient's left high calf. Left lower extremity was then scrubbed, prepped and draped utilizing normal aseptic technique. Left foot and ankle were then exanguinated with an Esmarch bandage and the tourniquet inflated to 250 mmHg. Attention was directed to the left ankle which was noted to be in a varus position and had gross instability and difficulty reducing out of varus position given the amount of talar tilt and arthrosis. Incision was planned for an anterior approach between the interval of the tibialis anterior tendon and extensor hallucis longus tendon of the left lower extremity. A linear longitudinal incision was made at the lateral border of the tibialis anterior tendon with incision being performed with a #15 blade through skin and then dissection carried down through subcutaneous tissue to the layer of joint capsule and periosteum utilizing sharp and blunt technique. Care was taken to retract and preserve neurovascular and tendinous structures. All bleeders were ligated and cauterized as necessary. Tibialis anterior tendon was left within its sheath. Neurovascular bundle was retracted laterally with the extensor hallucis longus tendon. A periosteal and capsular incision was then performed at the left anterior ankle and the left anterior ankle was distracted and prepared for arthrodesis. There was deep grooving with eburnation within the tibiotalar joint and the talus was in varus tilt. Cartilage surfaces were denuded down to subchondral plate utilizing curettage and osteotome. Subchondral plate was then penetrated with for scaling via osteotome and subchondral drilling with fenestrating drill bit both at the distal articular surface of the tibia and talar dome. The talus was then held parallel to the tibia reducing the varus deformity to neutral and slight valgus with ankle joint dorsiflexion at neutral or 90 degrees and slight external rotation, care is taken not to perform an anterior shift of the talus within the mortise and temporary fixation was achieved via transfixing K wire of the tibiotalar joint, confirmed arthrodesis site and position with standard AP, oblique and lateral views and noted to be excellent in all 3 planes. Next utilizing a Caruthers anterior talofibular anatomic plate a total of 4 screws in the talus and 4 in the tibia with excellent bony apposition and compression noted at the hardware and ankle arthrodesis site. Mcclelland fusion position of the ankle was maintained after having fixated with with plate and screws and removing K wire. The incision was irrigated with copious amounts of Staticin solution. Excellent robust construct was appreciated at the tibiotalar arthrodesis site. There was residual subtalar deformity that will need to be addressed as a staged procedure along with his forefoot deformity. Bony voids were then packed with V92. The incision was then irrigated and closed in a layered fashion with capsule and periosteum reapproximated utilizing 2-0 Vicryl, subcutaneous tissue, retinaculum and fascia closed with 3-0 Vicryl and skin closed with skin nino. The incision was dressed with Adaptic, sterile 4 x 4's, Kerlix followed by application of a short leg cast with ankle joint in neutral position this was well-padded. Tourniquet was deflated and a prompt hyperemic response was noted to the distal digits of the left foot. Patient tolerated the procedure and anesthesia and was transferred to the PACU with vital stable and intact. Following a period of postoperative monitoring he will be discharged home is to remain strict nonweightbearing to the left lower extremity. He is elevate his left foot while resting. I advised taking an 81 mg aspirin once daily starting morning after surgery to help potentially reduce the risk of deep vein thrombosis. Patient was given at home care instructions as well as follow-up and my cell phone number to contact with any postoperative questions or concerns.
== END 2023-01-28 12:47 | disposition home or self-care (01) ==
PROVIDERS: Anesthesiology; PCP Nurse Practitioner; Visit Provider Podiatrist Foot & Ankle Surgery
PROC: (CPT 28725; principal; 2023-01-28 08:10)
DX: M19.072 Primary osteoarthritis, left ankle and foot (principal); J44.9 Chronic obstructive pulmonary disease, unspecified; I10 Essential (primary) hypertension; E11.9 Type 2 diabetes mellitus without complications; Z79.4 Long term (current) use of insulin; Z79.891 Long term (current) use of opiate analgesic; F17.210 Nicotine dependence, cigarettes, uncomplicated; M25.373 Other instability, unspecified ankle; M21.542 Acquired clubfoot, left foot
CPT/HCPCS: 27870; 36415; 36416; 73600; 73610; 76000; 80048; 82962; 85025; 93005; C1713 ×2; C1762; C9290; J0690; J1100; J1170; J2370; J2405; J2704; J2795; J3010; J3490; J7030

== ENCOUNTER → 2023-02-10 12:59 | Outpatient (BNVA) | payer OTHER, MEDICAID, SELFPAY | PROVIDERS: PCP Nurse Practitioner; Visit Provider Podiatrist Foot & Ankle Surgery | DX: Z98.890 Other specified postprocedural states (principal); L84 Corns and callosities; Q66.32 Other congenital varus deformities of feet, left foot; M25.373 Other instability, unspecified ankle; Q66.02 Congenital talipes equinovarus, left foot; S93.05XS Dislocation of left ankle joint, sequela; M19.072 Primary osteoarthritis, left ankle and foot; X58.XXXS Exposure to other specified factors, sequela | CPT/HCPCS: 73610; 99024 ==

== ENCOUNTER → 2023-02-28 14:52 | Outpatient (BNVA) | payer OTHER, SELFPAY | PROVIDERS: PCP Nurse Practitioner; Visit Provider Podiatrist Foot & Ankle Surgery | DX: M25.372 Other instability, left ankle (principal); S93.05XS Dislocation of left ankle joint, sequela; X58.XXXS Exposure to other specified factors, sequela; L84 Corns and callosities; Q66.32 Other congenital varus deformities of feet, left foot; Q66.02 Congenital talipes equinovarus, left foot; M19.072 Primary osteoarthritis, left ankle and foot; Z79.4 Long term (current) use of insulin | CPT/HCPCS: 29405; 73610; 99024 ==

== ENCOUNTER → 2023-03-10 13:56 | Outpatient (BNVA) | payer OTHER, SELFPAY | PROVIDERS: PCP Nurse Practitioner; Visit Provider Podiatrist Foot & Ankle Surgery | DX: L84 Corns and callosities (principal); M21.6X2 Other acquired deformities of left foot; M21.172 Varus deformity, not elsewhere classified, left ankle | CPT/HCPCS: 73610; 99213 ==

== ENCOUNTER 2023-03-18 05:56 | Day surgery (SDC) | payer OTHER, SELFPAY ==
[2023-03-17 13:56] VITALS: BMI 29.4
[2023-03-18] VITALS (19 sets, daily range): BP systolic 108–155; BP diastolic 49–81; PULSE 105–111; RESP 16–20; TEMP 36.1–36.7; O2SAT 91–96
--- NOTE | 2023-03-18 | XR_ITS ---
WS: [id number] Left foot, the arm fluoroscopy, 03/18/2023 Clinical Data: ANGE PIC Comparison: None. Findings: Dr. Blue applied orthopedic screws into the calcaneus. XR/XR foot LT 2V [id number] Impression: Orthopedic screws inserted into left calcaneus.
--- NOTE | 2023-03-18 06:05 | W.PM.OPSUD ---
Surgery/Procedure H&P Update DATE OF PROCEDURE: March 18, 2023 DATE H&P PERFORMED: 03/10/23 CHANGES TO PREVIOUS DOCUMENTATION: none PREOP DIAGNOSIS: Left clubfoot PLANNED PROCEDURE: Operation Date: 03/18/23 07:00 Proposed Procedures p Triple arthrodesis, midfoot arthrodesis with osteotomy and flexor tenotomy all left lower extremity 82306, 30988, 28593,M21.549(Left) - Casimiro Blue DPM s Tenotomy Flexor Tenotomy(Left) - Casimiro Blue DPM
--- NOTE | 2023-03-18 06:06 | PM.OP ---
Operative Report Date of procedure: March 18, 2023 Pre-op diagnosis: Varus deformity acquired, left foot Congenital rear foot varus Left clubfoot Equinus deformity left foot Metatarsus adductus Procedure done: Left foot triple arthrodesis. CPT code 13357 Left foot flexor tenotomy. CPT code 56218 Implants: Woodridge 7 mm screw x2 at subtalar joint arthrodesis Woodridge 5.5 millimeters screw at subtalar joint arthrodesis Woodridge dog bone plate 4 hole with 3.5 mm locking screws x4 at calcaneocuboid arthrodesis Woodridge [place] T plate at medial column arthrodesis Woodridge DBM Woodridge V92 Iliac crest allograft 2-0 Vicryl 3-0 Vicryl 3-0 nylon 4-0 nylon Surgeon: Casimiro Blue D.P.M. Animal Husbandry Professor: Tenzin Estimated blood loss: 50 See intraoperative documentation IV fluids: 0 Urine output: None Complications: None Brief History: Patient is status post left ankle arthrodesis with anterior anatomic plate, x-ray of the left ankle shows stable interval of healing and intact hardware at the left ankle arthrodesis site without lucency or failure. Planning on staged out procedure to continue to address his clubfoot deformity that has progressed into his adulthood.? Discussed risks versus benefits of triple arthrodesis, soft tissue tendon balancing of flexor tendons, plantar fascia release and midfoot osteotomy.? I reviewed at length with the patient, the risks, potential complications, benefits, alternatives, expectations, and typical outcomes associated with the surgery. The risks and potential complications were explained in detail, including but not limited to infection, wound dehiscence or soft tissue complications, bleeding and hematoma, chronic edema, neuritis or nerve damage producing numbness or chronic pain, CRPS, failure to relieve pain or worsening pain, thick / painful / unsightly scar, limited motion / stiffness, malposition, delayed union, malunion, or nonunion, fracture, reaction to implants, anesthetic complications, venous thromboembolism, and deformity recurrence.? I discussed the notion of no regrets with the patient as it pertains to complications and outcomes. The patient seemed to understand the nature of the proposed care and required convalescence. They asked appropriate questions, answered to their satisfaction. They are aware no guarantees can be made as to a satisfactory outcome and they understand there may be other possible unforeseen complications or outcomes not listed here that will be treated accordingly if they arise. There were no written or implied guarantees given to the patient. They gave informed consent to proceed. Procedure: Under mild sedation the patient was brought to the operating room and placed onto the operating table in supine position. A timeout was performed. Anesthesia was then administered by the anesthesia service. Local anesthesia was injected by myself consisting of 10 cc of 0.5% Marcaine plain in a diffuse medial ankle field block. Popliteal block was performed preoperatively per anesthesia to the left lower extremity. The left lower extremity was scrubbed, prepped and draped utilizing normal aseptic technique. Left foot and ankle were exanguinated with an Esmarch bandage and the tourniquet was then inflated to 250 mmHg. Attention was directed to the left foot where calcaneal varus, forefoot adductus, forefoot equinus and supinated forefoot was appreciated. The approach was to work from posterior to anterior starting at the rear foot for subtalar joint arthrodesis then moving forward to the calcaneocuboid and talonavicular joints. Attention was directed to the left foot where bony landmarks were appreciated both the medial malleolus and navicular tuberosity as well as lateral malleolus and fourth metatarsal base. A dual incision was performed both the sinus tarsi approach and medial double approach. Incisions were made through skin with a #15 blade with dissection carried down to the layer of periosteum and joint capsule utilizing sharp and blunt technique. Care was taken to retract and preserve neurovascular and tendinous structures. All bleeders were ligated and cauterized as necessary. Access to the subtalar joint was gained through a sinus tarsi approach, the extensor digitorum brevis muscle origin was reflected out of the sinus tarsi and the sinus tarsi was evacuated of its contents. Subtalar joint was distracted and prepared for arthrodesis utilizing curettage, rotary bur followed by subchondral drilling with a fenestrating drill bit. The subtalar joint was held in neutral and fixated utilizing Woodridge 7 mm screw x2 and 5.5 millimeter screw x1, the 7 mm screws were perpendicular to the posterior facet and in parallel fashion a third point of fixation from inferior to superior within the calcaneal body was also performed with a 5.5 millimeter screw. Attention was then directed to the calcaneocuboid joint and talonavicular joint these were prepared for arthrodesis utilizing curettage and fenestrating drill bit for subchondral drilling [place] joint was mobilized and the mid foot was realigned to neutral position, due to the extent of his deformity alignment was not able to be obtained to neutral, on his medial incision once he was pulled out of varus and adduction gaping and separation of the incision affected the amount of osseous reduction, this was hinged on being able to close the soft tissue, soft tissue was a limiting factor on the amount of correction that could be performed. Dog bone and 3.5 millimeter screws were utilized to fixate the arthrodesis site of the calcaneocuboid joint and a T plate at the medial column, all bony voids at both the subtalar joint arthrodesis the calcaneocuboid arthrodesis and talonavicular arthrodesis were packed with DBM, V92, structural allograft was required at the medial column this was iliac crest this was shaped utilizing a sagittal saw, this was required secondary to the amount of correction in the transverse plane creating gapping at the medial column, the space was stabilized using a structural allograft provided by [place]. The tibialis posterior tendon required sharp release and excision to allow soft tissue reduction this was performed with a 15 blade under direct visualization. The incision sites were irrigated with copious amounts of sterile skin solution. Intraoperative C-arm confirmed excellent placement of all hardware and arthrodesis sites being in close apposition. Incisions were closed utilizing 2-0 Vicryl, 3-0 Vicryl, 4-0 Vicryl and 4-0 nylon. All incisions were dressed with Adaptic, sterile 4 x 4's, Kerlix and a well-padded short leg cast was applied to the left lower extremity. Tourniquet was deflated and a prompt hyperemic response was noted to the distal digits of the left foot. Patient tolerated the procedure and anesthesia well and was transferred to the PACU with vital signs stable and vascular status intact. Patient was given at home care instructions, scheduled follow-up, pain medication and was advised to take oipy-[id number]-[id number] 81 mg aspirin once daily to help potentially reduce the risk of deep vein thrombosis. He is to report to the emergency department with any postoperative complications.
[2023-03-18] MEDS: sodium chloride 0.9% 1,000 ML 30 ML IV (06:14)
[2023-03-18 06:23] LABS: Glucose Point of Care 247 mg/dL (70-110)
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
--- NOTE | 2023-03-18 06:48 | ANES.PROC ---
Anesthesia Procedures Procedure/Date: 03/18/23 Nerve Block ^: Nerve Block 1: Main Anesthesia: general anesthesia Time Out Performed: Yes Consent: requested by attending/covering physician, from patient, from other, risks and benefits reviewed and patient agrees to proceed Nerve block location: popliteal (L) Anesthesia monitors applied: pulse oximetry, EKG, BP cuff and oxygen Nerve block position: supine Anesthetic Used: ropivicaine 0.5% (30 ml) and with decadron (4 mg) Ultrasound used to: recognize landmarks Nerve Stimulator Used?: No Interscalene/Femoral BLK: 4 stimuplex 21 g needle used for position and inplane approach, visualize local anesthetic spread and no vascular puncture identified Patient Tolerated Procedure: well and no complications Complications: none
[2023-03-18] MEDS: ceFAZolin 2,000 MG in sodium chloride 0.9% (plus) 50 ML 100 MG IV (07:04)
[2023-03-18] MEDS: ceFAZolin 1,000 mg SDV 2000 MG IVP (09:35)
--- NOTE | 2023-03-18 16:12 | ANE.PACU2 ---
Inpatient post-anesthesia follow up: Airway intact: Yes Vital signs: Temperature 97.2 F Pulse Rate 107 Respiratory Rate 16 Blood Pressure 145/53 Pulse Oximetry 92 Oxygen Delivery Me thod Room Air Oxygen Flow Rate 1.5 Fraction of Inspir ed Oxygen Hydration adequate: Yes Nausea and vomiting: No Pain level: 1 Mental status: Baseline
== END 2023-03-18 13:35 | disposition home or self-care (01) ==
PROVIDERS: PCP Nurse Practitioner; Visit Provider Podiatrist Foot & Ankle Surgery
PROC: (CPT 20605; principal; 2023-03-18 07:00)
PROC: (CPT 28230; 2023-03-18 07:00)
DX: M24.59 Contracture, other specified joint; Q66.02 Congenital talipes equinovarus, left foot; Q66.32 Other congenital varus deformities of feet, left foot; J44.9 Chronic obstructive pulmonary disease, unspecified; I10 Essential (primary) hypertension; E11.9 Type 2 diabetes mellitus without complications; Z79.4 Long term (current) use of insulin; F17.210 Nicotine dependence, cigarettes, uncomplicated
CPT/HCPCS: 28230; 28715; 36415; 36416; 73620; 76000; 82962; C1713 ×2; C1734; C1762; J0131; J0690; J1100; J1170; J2370; J2405; J2704; J2795; J3010; J3490; J3535; J7030; P9045

== ENCOUNTER → 2023-03-22 16:02 | Outpatient (BNVA) | payer OTHER, SELFPAY | PROVIDERS: PCP Nurse Practitioner; Visit Provider Podiatrist Foot & Ankle Surgery | DX: Z98.890 Other specified postprocedural states (principal); L84 Corns and callosities; Q66.02 Congenital talipes equinovarus, left foot; Q66.32 Other congenital varus deformities of feet, left foot | CPT/HCPCS: 29405; 99024 ==

== ENCOUNTER → 2023-03-31 14:50 | Outpatient (BNVA) | payer OTHER, SELFPAY | PROVIDERS: PCP Nurse Practitioner; Visit Provider Podiatrist Foot & Ankle Surgery | DX: Z98.890 Other specified postprocedural states (principal); M21.6X2 Other acquired deformities of left foot; M21.179 Varus deformity, not elsewhere classified, unspecified ankle | CPT/HCPCS: 29405; 73610; 99024 ==

== ENCOUNTER 2023-04-04 16:23 | Inpatient (IN) | payer OTHER, SELFPAY ==
[2023-04-04] VITALS (23 sets, daily range): BP systolic 62–138; BP diastolic 37–96; PULSE 91–112; RESP 14–24; TEMP 36.6–36.9; O2SAT 88–99; BMI 29.4
--- NOTE | 2023-04-04 17:10 | XRR_ITS ---
PROCEDURE INFORMATION: Exam: XR Chest Exam date and time: 04/04/2023 5:32 PM Age: 62 years old Clinical indication: Other: Hypotension TECHNIQUE: Imaging protocol: Radiologic exam of the chest. Views: 1 view. COMPARISON: CR XR chest 1V portable [id number] 09/29/2021 10:37 AM FINDINGS: Limitations: Study is made with lordotic positioning. Lungs: There is no pulmonary vascular congestion. There are calcified granulomas in both lungs. No acute infiltrate is identified. Pleural spaces: Unremarkable. No pleural effusion. No pneumothorax. Heart/Mediastinum: Heart is within normal limits of size. Bones/joints: Unremarkable. XR/XR chest 1V portable [id number] IMPRESSION: Old granulomatous disease. No acute infiltrate.
--- NOTE | 2023-04-04 17:22 | ECG_ITS ---
[facility] Test Date: 2023-04-04 Pat Name: Rg Sanchez Department: Room: Gender: Male Department Helper: : 1960 Requested By: Beny Jeffrey Order Number: [id number] Poncho MD: Ferdinand Perez M.D. Measurements Intervals [place] Rate: 96 P: 72 NC: 162 QRS: 76 QRSD: 100 T: 55 QT: 370 QTc: 469 Interpretive Statements SINUS RHYTHM Compared to ECG 01/28/2023 07:50:11 Sinus tachycardia no longer present Electronically Signed On 04-04-2023 18:28:16 CDT by Ferdinand Perez M.D. [id number]
[2023-04-04 17:37] LABS: Basophils % 0.3 %; Eosinophils # 0.4 10^3/uL (0.0-0.8); Eosinophils % 2.9 %; Hematocrit 32.7 % (42.0-52.0); Hemoglobin 9.6 g/dL (11.7-16.6); Lymphocytes # 3.8 10^3/uL (0.8-4.8); Lymphocytes % 28.6 %; Mean Corpuscular HGB Conc 29.4 g/dL (30.0-36.0); Mean Corpuscular Hemoglobin 26.5 pg (28.0-34.0); Mean Corpuscular Volume 90.3 fl (80-94); Mean Platelet Volume 10.1 fL (7.4-10.4); Monocytes # 1.2 10^3/uL (0.2-0.9); Monocytes % 8.7 %; Neutrophils # 7.85 10^3/uL (1.8-7.7); Nucleated Red Blood Cells % 0 %; Platelet Count 394 10^3/cmm (130-400); Red Blood Count 3.62 10^6/uL (4.1-5.3); Red Cell Distribution Width 15.9 % (12.1-15.1); White Blood Count 13.3 10^3/uL (4.0-10.0)
--- NOTE | 2023-04-04 17:48 | W.ED.FALL ---
HPI - Fall General: Chief Complaint: Fall Stated Complaint: low BP, lethargic Time Seen by Provider: 04/04/23 16:48 Source: patient and family Limitations: no limitations History of Present Illness: This 62-year-old male with a history of hypertension, diabetes and methamphetamine abuse was sent to the ER from Dr. Blue's office for low blood pressure. Patient was at the office for a follow-up visit. On further questioning, daughter, who was in the room, stated that patient's blood pressure has been low since Tuesday. They called the ambulance on Tuesday but patient refused to come to the hospital. Patient notes that on Tuesday morning, he woke up and found himself underneath the street light. He does not remember leaving his house or lying down under the street light. Patient states that his whole body hurts but he has no fever, urinary symptoms or diarrhea. He has cough which she says is due to his smoking. Daughter also noted that patient has not been acting himself all weekend. Here in the ER, patient is twitching and restless in bed. He admitted to using methamphetamine this morning. Associated symptoms-after fall: Denies chest pain or lightheadedness Review of Systems Eyes: Denies: change in vision or eye discharge ENMT: Denies: throat pain, dental pain or nasal discharge Card: Denies: chest pain or lightheadedness : Denies: dysuria Musc: Reports: other (Generalized body pain.) Neuro: Reports: frequent falls and behavioral changes Psych: Denies: depression Bola/Lymph: Denies: easy bruising All/Imm: Denies: urticaria, tongue swelling or facial swelling PFS ED PFSH: Medical History COPD (chronic obstructive pulmonary disease) Emphysema lung Hernia Hypertension Prostate cancer Thoracic stomach hernia Surgical History H/O exploratory thoracotomy H/O heart surgery History of right hip replacement History of surgery on upper extremity Family History Mother Cancer Father CAD (coronary artery disease) Social History Smoking and tobacco status: current every day smoker (9 cigerettes a day ) cigarettes Packs smoked per day: 1 Quit status (tobacco): not considering quitting Second hand smoke exposure: Yes Smoking risk assessment/counseling performed?: Yes Alcohol intake: current Alcohol intake frequency: few times a week Alcohol type: beer Desire information about alcohol rehabilitation?: No Counseling given: Yes Substance/Drug Use: never Desire information about substance/drug rehabilitation?: No Counseling given: Yes Adopted: Yes Caregiver/support person: No Lives independently: Yes Household members: none Housing: Apartment Marital status: Single Number of children: 0 Highest education level completed: GED or Equivalent service: Yes Current occupational status: disabled Pets and animals: Yes Leisure activites: sports, exercise, clubs, art, music, games, hunting, fishing, reading and volunteer work Sexually active: Yes Do you think of yourself as: Straight/Heterosexual Current gender identity: Male Pratima/Restorationism: Rastafarian [employer] Special pratima needs: No Agree to transfusion: Yes Financial difficulty paying for basics: Not Very Hard Physical Exam Const: COMMON NORMALS: patient oriented x3 and alert OTHER: Restless, unable to stay still in bed. HENMT: COMMON NORMALS: normocephalic HEAD & SCALP: normocephalic Eye: COMMON NORMALS: EOMs intact bilaterally Neck/C-Spine: COMMON NORMALS: full ROM and supple Chest: COMMONS NORMALS: normal inspection of the chest Resp: COMMON NORMALS: normal respiratory effort, No retractions, No use of accessory muscles and clear to auscultation bilaterally AUSCULTATION: clear to auscultation bilaterally Cardio: COMMON NORMALS: regular rhythm and No murmurs present (Cardio) RATE: tachycardic RHYTHM: regular rhythm GI: COMMON NORMALS: Normal to inspection, nondistended, normoactive bowel sounds present and non-tender : COMMON NORMALS: Yes no CVA tenderness BLADDER/KIDNEY EXAM: Yes no CVA tenderness Back/Pelvis: COMMON NORMALS: no CVA tenderness and no thoracic nor lumbar tenderness Extremity: GENERAL: Yes normal exam except as noted Neuro: COMMON NORMALS: patient oriented x3, moves all extremities, no focal motor deficits and no sensory deficits noted SENSORIUM/ORIENTATION: Yes alert Psych: COMMON NORMALS: mental status grossly normal and cooperative Procedures Central Line Placement Right IJ: Time Out Performed: Yes Patient Placed on Monitor/Pulse Ox: Yes Prep: mask, gown, gloves and other (sterile cap) Local Anesthetic: lidocaine 1% Amount of anesthesia used (mL): 4 Ultrasound Used for Placement: Yes Central Line Lumen Inserted: triple Post Procedure: sutured in place, good blood return, all ports aspirated, flushed, capped and sterile dressing applied Post Procedure X-Ray: tip of catheter in good position and no pneumothorax seen Patient Tolerated Procedure: well and no complications Complications: none Additional Comments: This central line placement was done in the ICU after patient had been admitted. The reason being that patient remained hypotensive despite adequate fluid resuscitation. Course Vital Signs: Vital signs: Vital Signs Temperature 98.4 F 04/04/23 16:31 Pulse Rate 98 04/04/23 18:25 Respiratory Rate 16 04/04/23 18:25 Blood Pressure 89/46 04/04/23 18:25 Pulse Oximetry 95 04/04/23 18:25 Oxygen Delivery Me thod Nasal Cannula 04/04/23 18:25 Oxygen Flow Rate 2 04/04/23 18:25 MDM - Fall Medical Decision Making Medical decision making: Patient presents to the ER with hypotension. He admitted to using methamphetamine this morning and was tweaking under the influence. Work-up revealed NIYA most likely due to hypotension. IV fluid resuscitation given. Case discussed with Dr. Alberto who accepted patient for ICU admission for further management. . Lab Data 04/04/23 17:13 04/04/23 17:13 Laboratory Results WBC 13.3 10^3/uL (4.0-10.0) H 04/04/23 17:13 RBC 3.62 10^6/uL (4.1-5.3) L 04/04/23 17:13 Hgb 9.6 g/dL (11.7-16.6) L 04/04/23 17:13 Hct 32.7 % (42.0-52.0) L 04/04/23 17:13 MCV 90.3 fl (80-94) 04/04/23 17:13 MCH 26.5 pg (28.0-34.0) L 04/04/23 17:13 MCHC 29.4 g/dL (30.0-36.0) L 04/04/23 17:13 RDW 15.9 % (12.1-15.1) H 04/04/23 17:13 Plt Count 394 10^3/cmm (130-400) 04/04/23 17:13 MPV 10.1 fL (7.4-10.4) 04/04/23 17:13 Neut % (Auto) 59.0 % 04/04/23 17:13 Lymph % (Auto) 28.6 % 04/04/23 17:13 Wright % (Auto) 8.7 % 04/04/23 17:13 Eos % (Auto) 2.9 % 04/04/23 17:13 Baso % (Auto) 0.3 % 04/04/23 17:13 Neut # (Auto) 7.85 10^3/uL (1.8-7.7) H 04/04/23 17:13 Lymph # (Auto) 3.8 10^3/uL (0.8-4.8) 04/04/23 17:13 Wright # (Auto) 1.2 10^3/uL (0.2-0.9) H 04/04/23 17:13 Eos # (Auto) 0.4 10^3/uL (0.0-0.8) 04/04/23 17:13 Baso # (Auto) 0.0 10^3/uL (0.0-0.1) 04/04/23 17:13 Nucleated RBC % (auto) 0 % 04/04/23 17:13 Nucleated RBCs # 0.0 /100WBC 04/04/23 17:13 Sodium 137 mmol/L (136-145) 04/04/23 17:13 Potassium 4.5 mmol/L (3.5-5.1) 04/04/23 17:13 Chloride 101 mmol/L (98-107) 04/04/23 17:13 Carbon Dioxide 24 mmol/L (22-29) 04/04/23 17:13 Anion Gap 16.5 (5-19) 04/04/23 17:13 BUN 32 mg/dL (8-23) H 04/04/23 17:13 Creatinine 3.4 mg/dL (0.7-1.2) H 04/04/23 17:13 GFR Calculation 18.4 mL/min (90-130) L 04/04/23 17:13 Glucose 159 mg/dL (65-115) H 04/04/23 17:13 POC Glucose 140 mg/dL (70-110) H 04/04/23 17:47 Calculated Osmolality 294 mOsm/kg (285-295) 04/04/23 17:13 Lactic Acid 2.0 mmol/L (0.5-2.2) 04/04/23 17:21 Calcium 8.6 mg/dL (8.5-10.5) 04/04/23 17:13 Total Bilirubin 0.2 mg/dL (0.15-1.2) 04/04/23 17:13 AST 28 U/L (0-40) 04/04/23 17:13 ALT 11 U/L (0-41) 04/04/23 17:13 Alkaline Phosphatase 124 U/L (40-130) 04/04/23 17:13 Total Protein 6.6 g/dL (6.6-8.7) 04/04/23 17:13 Albumin 3.5 g/dL (3.5-5.2) 04/04/23 17:13 Globulin 3.1 g/dL (1.3-4.6) 04/04/23 17:13 Procalcitonin 0.44 ng/mL (0-0.5) 04/04/23 17:13 Urine Color Dark yellow (Yellow) 04/04/23 17:53 Urine Appearance Clear (CLEAR) 04/04/23 17:53 Urine pH 5 (5-7) 04/04/23 17:53 Ur Specific [place] 1.030 (1.005-1.030) 04/04/23 17:53 Urine Protein Neg (Negative) 04/04/23 17:53 Urine Glucose (UA) Norm (Normal) 04/04/23 17:53 Urine Ketones Negative (Negative) 04/04/23 17:53 Urine Blood Neg (Negative) 04/04/23 17:53 Urine Nitrate Negative (Negative) 04/04/23 17:53 Urine Bilirubin 1+ (Negative) H 04/04/23 17:53 Urine Urobilinogen 1 mg/dL (Negative) H 04/04/23 17:53 Ur Leukocyte Esterase Negative (Negative) 04/04/23 17:53 Urine Opiates Screen Negative ng/mL (Negative) 04/04/23 17:53 Ur Barbiturates Screen Negative ng/mL (Negative) 04/04/23 17:53 Ur Phencyclidine Scrn Negative ng/mL (Negative) 04/04/23 17:53 Ur Amphetamines Screen Positive ng/mL (Negative) H 04/04/23 17:53 U Benzodiazepines Scrn Positive ng/mL (Negative) H 04/04/23 17:53 Urine Cocaine Screen Negative ng/mL (Negative) 04/04/23 17:53 U Marijuana (THC) Screen Negative ng/mL (Negative) 04/04/23 17:53 EKG Data EKG 1: Interpretation: Sinus rhythm, rate of 96, normal axis, normal intervals, normal QRS, no STEMI. Critical Care Time Critical Care Time: Critical Care Time: Yes Total Critical Care Time: 65 Attestation: Patient was hypotensive and required IV bolus fluid resuscitation. He is in NIYA and will be admitted to the ICU. Discharge Plan Discharge Patient Disposition: Admitted As Inpatient Admit Provider: Therese Alberto Clinical Impression: Acute renal failure (ARF), Acute hypotension, Methamphetamine abuse Condition: Stable Coding Level of Care Code ED Tourist Cabin Keeper for Danni Chavez
[2023-04-04 17:55] LABS: Alanine Aminotransferase 11 U/L (0-41); Albumin Level 3.5 g/dL (3.5-5.2); Alkaline Phosphatase 124 U/L (40-130); Anion Gap 16.5 (5-19); Aspartate Amino Transferase 28 U/L (0-40); Blood Urea Nitrogen 32 mg/dL (8-23); Calcium 8.6 mg/dL (8.5-10.5); Carbon Dioxide 24 mmol/L (22-29); Chloride 101 mmol/L (98-107); Globulin 3.1 g/dL (1.3-4.6); Glomerular Filtration Rate 18.4 mL/min (90-130); Glucose 159 mg/dL (65-115); Osmolality Calculated 294 mOsm/kg (285-295); Potassium 4.5 mmol/L (3.5-5.1); Sodium 137 mmol/L (136-145); Total Bilirubin 0.2 mg/dL (0.15-1.2); Total Protein 6.6 g/dL (6.6-8.7)
[2023-04-04 17:58] LABS: Glucose Point of Care 140 mg/dL (70-110)
[2023-04-04 18:22] LABS: Add Urine Microscopic? NO; Charge for UA Resulting for Rev
[2023-04-04 18:25] LABS: Bilirubin Urine 1+ (Negative); Blood Urine Neg (Negative); Glucose Urine UA Norm (Normal); Ketones Urine Negative (Negative); Leukocyte Esterase Urine Negative (Negative); Nitrate Urine Negative (Negative); Protein Urine Neg (Negative); Urine Appearance Clear (CLEAR); Urine Color Dark Yellow (Yellow); Urobilinogen Urine 1 mg/dL (Negative); pH Urine 5 (5-7)
--- NOTE | 2023-04-04 18:28 | PC.NURSE ---
Patient was seen in podiatry today with Dr. Blue. Referred by podiatry for hypotension. Patient and family report he fell and blacked out last night. He reports using methamphetamines this morning. Patient hypotensive, alert and oriented x3. Intermittently falls asleep while talking. Suggested administration of narcan to Dr Manzano due to unknown drug usage this morning and inability to stay awake during conversation. Per Dr. Manzano, no narcan at this time, wait on urine drug screen results. Start 2 peripheral lines and administer 2L bolus, this was done.
[2023-04-04 18:34] LABS: Amphetamines Screen Urine Positive (Negative); Barbiturates Screen Urine Negative (Negative); Benzodiazepines Screen Urine Positive (Negative); Cocaine Screen Urine Negative (Negative); Opiate Screen Urine Negative (Negative); PCP Screen Urine Negative (Negative); THC Screen Urine Negative (Negative)
[2023-04-04] MEDS: ketorolac 30 mg/mL INJ 15 MG IVP (19:49)
[2023-04-04] MEDS: cefepime 1,000 MG in sodium chloride 0.9% (plus) 50 ML 100 MG IV (19:50)
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
[2023-04-04] MEDS: vancomycin 1,000 MG in sodium chloride 0.9% 250 ML 250 MG IV (20:52)
[2023-04-04] MEDS: sodium chloride 0.9% 1,000 ML 125 ML IV (21:31)
--- NOTE | 2023-04-04 21:43 | PC.NURSE ---
Admission Note: Pt arrived to ICU 6 from ER @2101 via stretcher. Continuos monitoring initiated. BP shows MAP's in the high 50's. Dr. Alberto contacted. New order for levophed drip and central line placement. Consent obtained for cental line. Dr. Nagel from ER to place central line. Pt is reporting R. leg pain 5. Pt has requested some good drugs several times. Mental status changes quickly, pt will be alert and answering questions appropriately on moment, and the next he will be mumbling or snoring but will awakens quickly when his name is called. Pt states, just give me some meth if you want me to stay up .
[2023-04-04 21:54] LABS: Procalcitonin 0.44 ng/mL (0-0.5)
--- NOTE | 2023-04-04 22:01 | PC.NURSE ---
Unable to complete admission assessment d/t AMS. Pt is unable to stay awake long enough to answer questions. Pt intermittent falling asleep while talking to pt. Admission assessment re-timed for 0900.
--- NOTE | 2023-04-04 22:07 | XRR_ITS ---
PROCEDURE INFORMATION: Exam: XR Chest Exam date and time: 04/04/2023 9:22 PM Age: 62 years old Clinical indication: Device placement; Other: Central line placement TECHNIQUE: Imaging protocol: Radiologic exam of the chest. Views: 1 view. COMPARISON: CR (CHEST, ) 04/04/2023 5:32 PM FINDINGS: Tubes, catheters and devices: Right jugular central venous catheter is in place with its tip in the region the right atrium. Lungs: There are calcified granulomas in both lungs. There is some mild infiltrate in the left lower lobe. Developing pneumonia not excluded. Follow-up PA and lateral views suggested. There is no pulmonary vascular congestion. Pleural spaces: Unremarkable. No pleural effusion. No pneumothorax. Heart/Mediastinum: Heart is within normal limits of size. Bones/joints: Unremarkable. XR/XR chest 1V portable [id number] IMPRESSION: 1. No pneumothorax following right jugular line placement. 2. Question of developing infiltrate in the left lower lobe. Follow-up suggested.
--- NOTE | 2023-04-04 22:44 | PC.PHAR ---
Pharmacokinetic dosing service Date: 04/04/23 Time: 2244 Objective: Patient: Rg Sanchez Floor: ICU-6 Age: 62 yo Serum creatinine: 3.4 mg/dL Height: 70.0 Inches Weight (kg): 92.986 Diagnosis: Relevant medical/social history: Cultures and sensitivities: Other labs: Assessment: IBW (kg): 73.00 Dosing wt(kg): 92.986 Estimated Creatinine clearance (ml/min): 23.0 CRCL method: Cockcroft and Gault using ibw(default). Drug selected: Vancomycin Loading dose (mg): 0 Vd (liters): 83.7 (factor used: 0.9 L/kg) Stevie (hr-1): 0.023 Half life (hrs): 30.14 Recommended dose: 1000 mg Interval: 24 hrs Infusion time (hrs): 1.5 Predicted peak (mcg/mL): 27.7 Predicted trough (mcg/mL): 16.51 Total body weight is being used for vancomycin dosing. Renal function is stable [ ] /unstable [ ] Recommendations: Give Vancomycin 1000 mg q 24 hrs with an expected Cpeak of 27.7 mcg/ml and an expected Ctrough of 16.51 mcg/ml Renal dosing of other antibiotics (review renal dosing of other medications and list guidelines here): Thank you for the consult, will continue to follow. Signature: Yanna Nichole [facility]
[2023-04-04] MEDS: piperacillin-tazobactam 3.375 GM in sodium chloride 0.9% (plus) 50 ML IV (23:11)
[2023-04-04 23:14] LABS: Lactic Sepsis W/Reflex 0.5 mmol/L (0.5-2.2)
[2023-04-04] MEDS: heparin 5,000 unit/mL INJ 1 mL 5000 UNIT SUBCUT (23:46)
[2023-04-05] VITALS (91 sets, daily range): BP systolic 91–171; BP diastolic 46–102; PULSE 64–104; RESP 11–30; TEMP 36.5–36.8; O2SAT 90–98
[2023-04-05 02:50] LABS: Basophils % 0.3 %; Eosinophils # 0.4 10^3/uL (0.0-0.8); Eosinophils % 3.8 %; Hematocrit 30.6 % (42.0-52.0); Hemoglobin 8.8 g/dL (11.7-16.6); Lymphocytes # 4.6 10^3/uL (0.8-4.8); Lymphocytes % 39.2 %; Mean Corpuscular HGB Conc 28.8 g/dL (30.0-36.0); Mean Corpuscular Hemoglobin 26.5 pg (28.0-34.0); Mean Corpuscular Volume 92.2 fl (80-94); Mean Platelet Volume 9.7 fL (7.4-10.4); Monocytes % 8.8 %; Neutrophils # 5.53 10^3/uL (1.8-7.7); Neutrophils % 47.5 %; Nucleated Red Blood Cells % 0 %; Platelet Count 330 10^3/cmm (130-400); Red Blood Count 3.32 10^6/uL (4.1-5.3); White Blood Count 11.7 10^3/uL (4.0-10.0)
[2023-04-05 03:01] LABS: INR 1.16 (0.8-1.2)
--- NOTE | 2023-04-05 03:12 | USCV_ITS ---
Rg Sanchez Age: 62 Gender: M : 1960 Exam Date: 04/05/2023 03:28 Ordering Phys: Therese Alberto MD Technologist: LISSETH Exam Location: [facility] Indication: HTN, shock, DM, methamphetamine abuse. Patient is twitching and incoherent in ICU-6 BP: 118 / 62 HR: 92 Rhythm: Sinus Technical Quality: Adequate MEASUREMENTS (Male / Female) Normal Values 2D ECHO LV Diastolic Diameter PLAX 4.0 cm 4.2 - 5.9 / 3.9 - 5.3 cm LV Systolic Diameter PLAX 2.6 cm IVS Diastolic Thickness 1.4 cm 0.6 - 1.0 / 0.6 - 0.9 cm IVS Systolic Thickness 2.4 cm LVPW Diastolic Thickness 1.6 cm 0.6 - 1.0 / 0.6 - 0.9 cm LVPW Systolic Thickness 1.4 cm LVOT Diameter 2.5 cm LV Ejection Fraction 2D Teich 64.8 % LV Ejection Fraction MOD 2C 70.0 % LV Ejection Fraction 2C AL 69.8 % LA Diameter 3.2 cm LA Width 4.7 cm LA Height 4.2 cm RA Width 3.8 cm RA Height 3.7 cm Aorta at Sinotubular Diameter 3.5 cm IVC Diameter 1.9 cm M-MODE Aortic Annulus Diameter 3.4 cm LA Ao Ratio MM 0.9 DOPPLER AV Peak Velocity 162.0 cm/s LVOT Peak Velocity 135.0 cm/s AV Area Cont Eq vti 3.6 cm squared AV Area Cont Eq pk 4.1 cm squared MV Peak Velocity 113.0 cm/s MV Area PHT 3.9 cm squared Mitral E to A Ratio 0.9 MV E' Velocity 54.5 cm/s Mitral E to MV E' Ratio 9.8 Mitral E to LV E' Lateral Ratio 8.7 Mitral E to LV E' Septal Ratio 11.1 TV Peak E Velocity 40.0 cm/s PV Peak Velocity 105.0 cm/s RV Acceleration Time 0.1 s RV Ejection Time 0.3 s RV AcT/ET 0.3 FINDINGS Left Ventricle Normal left ventricular size, systolic function and wall thickness, with no regional wall motion abnormalities. Left ventricular ejection fraction is estimated at 70 %. Normal diastolic function. Right Ventricle Normal right ventricular size and systolic function. RVSP could not be calculated due to incomplete tricuspid regurgitation velocity profile. Right Atrium Normal right atrial size. There is highly mobile echogenic globular appearing mass in right atrium that seems to be attached to right atrial wall (seen on subcoastal images). This may represent infective endocarditis or right atrial thrombus. Left Atrium Normal left atrial size. Mitral Valve Structurally normal mitral valve. No mitral valve stenosis. Trace mitral valve regurgitation. Aortic Valve Structurally normal trileaflet aortic valve. No aortic valve stenosis. No aortic valve regurgitation. Tricuspid Valve Structurally normal tricuspid valve. Trace tricuspid valve regurgitation. Pulmonic Valve Structurally normal pulmonic valve. No pulmonary valve stenosis. No pulmonary valve regurgitation. Pericardium No pericardial effusion. Aorta Normal size aortic root and proximal ascending aorta. IVC Normal IVC dimension with >50% respiratory change of the inferior vena cava. CONCLUSIONS 1. Normal left ventricular size, systolic function and wall thickness, with no regional wall motion abnormalities. Left ventricular ejection fraction is estimated at 70 %. Normal diastolic function. 2. There is highly mobile echogenic globular appearing mass in right atrium that seems to be attached to right atrial wall (seen on subcoastal images). This may represent infective endocarditis or right atrial thrombus. 3. WILI is recommended for evaluation of right atrial mass. Narda Ann MD (Electronically Signed) Final Date: 05 April 2023 12:21 S
[2023-04-05 03:14] LABS: Alanine Aminotransferase 12 U/L (0-41); Albumin Level 2.9 g/dL (3.5-5.2); Alkaline Phosphatase 118 U/L (40-130); Anion Gap 12.6 (5-19); Aspartate Amino Transferase 29 U/L (0-40); Blood Urea Nitrogen 28 mg/dL (8-23); Calcium 8.5 mg/dL (8.5-10.5); Carbon Dioxide 23 mmol/L (22-29); Chloride 107 mmol/L (98-107); Globulin 2.9 g/dL (1.3-4.6); Glomerular Filtration Rate 22.1 mL/min (90-130); Glucose 208 mg/dL (65-115); Magnesium 2.1 mg/dL (1.7-2.3); Osmolality Calculated 298 mOsm/kg (285-295); Potassium 4.6 mmol/L (3.5-5.1); Sodium 138 mmol/L (136-145); Total Bilirubin 0.2 mg/dL (0.15-1.2); Total Protein 5.8 g/dL (6.6-8.7)
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
[2023-04-05 03:26] LABS: Slide Review Slide Review Perform
[2023-04-05 03:35] LABS: Ferritin 218 ng/mL (30-400); Iron 19 ug/dL (59-158); Percent Saturation 10.3 % (20-50); Total Iron Binding Capacity 183 mcg/dl; Unsaturated Iron Binding 164 ug/dL (112-347)
[2023-04-05] MEDS: sodium chloride 0.9% 1,000 ML 125 ML IV ×2 (05:20→13:37)
[2023-04-05] MEDS: piperacillin-tazobactam 3.375 GM in sodium chloride 0.9% (plus) 50 ML IV ×2 (07:24→15:57)
[2023-04-05] MEDS: heparin 5,000 unit/mL INJ 1 mL 5000 UNIT SUBCUT ×2 (07:24→20:48)
[2023-04-05] MEDS: pantoprazole 40 mg SDV IVP (07:24)
--- NOTE | 2023-04-05 08:02 | PC.PHAR ---
faxed [place] for med list
--- NOTE | 2023-04-05 10:30 | PC.PHAR ---
pt states he takes care of his own medications-pt states he uses lantus 40 units qam [facility] med list has 38 units daily-pt states he doesnt take celebrex 200mg bid medication as active med on [facility] med list-pt states his metformin was dced-pt states he is still taking lisinopril 40mg daily,hctz 25mg qam,and amlodipine 10mg qam pts [facility] med list has those as discontinued meds but pt states still takes-pt states he no longer takes allopurinol 100mg or ezetimibe 10mg daily-notes are made in the pharmacy comments
--- NOTE | 2023-04-05 16:54 | PM.CONSULT ---
Providers/Reason For Consult Consulting Physician/Specialty*: Ferdinand Perez MD/ Cardiology Reason for Consult*: Right atrial mass Requesting Physician: Dr Henderson Attending Physician: Mario Henderson MD Primary Care Provider: JB Prado History of Present Illness History of Present Illness Rg Sanchez is a 62 year old male who was admitted with septic shock. Cardiology consulted as transthoracic echocardiogram reveals possible right atrial mass and needs transesophageal echocardiogram to better assess. He is otherwise clinically improving. Review of Systems Eyes: Denies: change in vision or eye discharge ENMT: Denies: throat pain, dental pain or nasal discharge Card: Denies: chest pain or lightheadedness : Denies: dysuria Musc: Reports: other (Generalized body pain.) Neuro: Reports: frequent falls and behavioral changes Psych: Denies: depression Bola/Lymph: Denies: easy bruising All/Imm: Denies: urticaria, tongue swelling or facial swelling Medications/Allergies Home Medications Medication Instructions Recorded Confirmed Last Taken Type Diabetic shoes with inserts #1 11/18/20 04/05/23 Unknown Rx amlodipine 10 mg tablet 10 mg PO [facility] 11/18/20 04/05/23 1 Day Ago History ~03/16/23 cam boot #1 ea 11/18/20 04/05/23 Unknown Rx hydrochlorothiazide 25 mg tablet 25 mg PO QA 11/18/20 04/05/23 1 Day Ago History ~03/16/23 non articulating AFO #1 ea 11/18/20 04/05/23 Unknown Rx omeprazole 40 mg capsule,delayed 40 mg PO DAILY 11/18/20 04/05/23 03/17/23 History release insulin glargine 100 unit/mL 40 unit SUBCUT [facility] 01/05/21 04/05/23 03/17/23 History subcutaneous solution (Lantus U-100 Insulin) Non Articulating AFO #1 ea 02/24/21 04/05/23 Unknown Rx Diabetic shoes #1 ea 02/25/21 04/05/23 Unknown Rx blood sugar diagnostic (Accu-Chek #100 ea 07/08/21 04/05/23 Unknown Rx SmartView Test Strips) Crutch bottoms bilaterally #1 ea 07/24/21 04/05/23 Unknown Rx albuterol sulfate 90 mcg/actuation 2 puff inhalation QID PRN 09/29/21 04/05/23 1 Day Ago History aerosol inhaler Shortness Of Breath ~03/16/23 sildenafil 100 mg tablet 100 mg PO PRN PRN Erectile 09/29/21 04/05/23 1 Day Ago History Dysfunction ~03/16/23 sertraline 100 mg tablet 150 mg PO DAILY 12/09/21 04/05/23 1 Day Ago History ~03/16/23 Cam boot to the left #1 ea 01/20/22 04/05/23 Unknown Rx cam boot to the left #1 ea 01/03/23 04/05/23 Unknown Rx alogliptin 12.5 mg tablet 12.5 mg PO DAILY 01/27/23 04/05/23 1 Day Ago History ~03/16/23 lisinopril 40 mg tablet 40 mg PO DAILY 01/27/23 04/05/23 03/17/23 History Crutches #1 ea 03/02/23 04/05/23 Unknown Rx sulfamethoxazole 800 1 tab PO BID 14 days #28 tabs 03/31/23 04/05/23 Unknown Rx mg-trimethoprim 160 mg tablet (Bactrim DS) gabapentin 300 mg capsule 300 mg PO TID 04/05/23 04/05/23 Unknown History omega-3 fatty acids 1,000 mg 1,000 mg PO BID 04/05/23 04/05/23 Unknown History capsule oxybutynin chloride 5 mg tablet 5 mg PO BEDTIME PRN Spasms 04/05/23 04/05/23 Unknown History oxycodone 15 mg tablet 15 mg PO Q4H PRN pain 04/05/23 04/05/23 Unknown History oxycodone-acetaminophen 10 mg-325 1 tab PO Q6H PRN Pain 04/05/23 04/05/23 Unknown History mg tablet tamsulosin 0.4 mg capsule (Flomax) 0.4 mg PO DAILY 04/05/23 04/05/23 Unknown History Allergies Allergy/AdvReac Type Severity Reaction Status Date / Time metoprolol Allergy Mild lathargic Verified 04/04/23 16:31 Current Medications Generic Name Dose Route Start Last Admin Trade Name Freq PRN Reason Stop Dose Admin Heparin Sodium (Porcine) 5,000 unit 04/04/23 21:00 04/05/23 07:24 Heparin 5,000 Unit/Ml Inj 1 Ml SUBCUT 5,000 unit Q12H DEBORAH Administration Sodium Chloride 1,000 mls @ 125 mls/hr 04/04/23 20:45 04/05/23 13:37 Sodium Chloride 0.9% IV 125 mls/hr .Q8H DEBORAH Administration Piperacillin Sod/Tazobactam 50 mls @ 12.5 mls/hr 04/05/23 00:00 04/05/23 15:57 Sod 3.375 gm/ Sodium Chloride IV 12.5 mls/hr Q8H DEBORAH Administration Protocol Norepinephrine Bitartrate 4 mg 254 mls @ 0 mls/hr 04/04/23 21:30 04/05/23 09:30 / Dextrose IV 0 mcg/min .Q0M DEBORAH 0 mls/hr Titration Protocol Per Protocol Pantoprazole Sodium 40 mg 04/05/23 09:00 04/05/23 07:24 Pantoprazole 40 Mg Sdv IVP 40 mg DAILY DEBORAH Administration PFSH Acute PFSH: Medical History COPD (chronic obstructive pulmonary disease) Emphysema lung Hernia Hypertension Prostate cancer Thoracic stomach hernia Surgical History H/O exploratory thoracotomy H/O heart surgery History of right hip replacement History of surgery on upper extremity Family History Mother Cancer Father CAD (coronary artery disease) Social History Smoking and tobacco status: current every day smoker (9 cigerettes a day ) cigarettes Packs smoked per day: 1 Quit status (tobacco): not considering quitting Second hand smoke exposure: Yes Smoking risk assessment/counseling performed?: Yes Alcohol intake: current Alcohol intake frequency: few times a week Alcohol type: beer Desire information about alcohol rehabilitation?: No Counseling given: Yes Substance/Drug Use: never Desire information about substance/drug rehabilitation?: No Counseling given: Yes Adopted: Yes Caregiver/support person: No Lives independently: Yes Household members: none Housing: Apartment Marital status: Single Number of children: 0 Highest education level completed: GED or Equivalent service: Yes Current occupational status: disabled Pets and animals: Yes Leisure activites: sports, exercise, clubs, art, music, games, hunting, fishing, reading and volunteer work Sexually active: Yes Do you think of yourself as: Straight/Heterosexual Current gender identity: Male Pratima/Zoroastrian: [employer] Special pratima needs: No Agree to transfusion: Yes Financial difficulty paying for basics: Not Very Hard Vitals/I&O/Wt Last Vital Signs Temp 98.2 F 04/05/23 05:00 Pulse 90 04/05/23 16:00 Resp 18 04/05/23 16:00 BP 135/68 04/05/23 16:00 Pulse Ox 96 04/05/23 13:30 O2 Del Method Nasal Cannula 04/05/23 08:16 O2 Flow Rate 2 04/05/23 08:16 04/05/23 04/05/23 04/05/23 06:59 14:59 22:59 Intake Total 1190.977 / 4297.956 1681.623 / 1681.623 Output Total 1000 / 1000 Balance 190.977 / 3297.956 1681.623 / 1681.623 Weight last 48 hrs Weight 207 lb Weight 205 lb Physical Exam Narrative: GENERAL: Patient is alert, awake and oriented x3. [] NECK: No jugular vein distension. [] HEENT: No cyanosis. No icterus. No pallor. [] HEART: Regular S1 and S2. No murmur, rub or gallop. [] LUNGS: Clear to auscultate bilaterally. [] CENTRAL NERVOUS SYSTEM: Grossly nonfocal. [] EXTREMITIES: Lower extremities with no edema Urinary Catheter Management: Cha: Cath Placed During This Visit: yes Reason for Continuing Indwelling Catheter: Accurate Measurement of Urinary Output in Critically Ill Patients Urinary Catheter Date of Insertion: 04/04/23 Urinary Catheter Time of Insertion: 21:35 Data 04/06/23 02:10 04/06/23 02:10 Micro: Microbiology 04/04/23 23:16 MRSA Culture - Final Nose 04/04/23 17:30 Blood Culture - Preliminary Blood SPECIMEN COLLECTED 04/04/23 17:21 Blood Culture - Preliminary Blood SPECIMEN COLLECTED A&P Assessment and plan (1) Septic shock: (2) Acute renal failure (ARF): (3) Acute hypotension: (4) Methamphetamine abuse: (5) Cardiac mass: Plan In current clinical scenario of septic shock and possible cardiac mass, we will proceed with transesophageal echocardiogram to better assess it. Currently on antibiotics for endocarditis treatment. N.p.o. past midnight. Thank you for involving us with care of this patient. We will continue to follow. Please call with questions. Consult Attestations Medical Necessity Statement: Care expected to cross 2 midnights. Coding Level of Care Code Acute Code for [facility] Diagnoses Septic shock A41.9; R65.21 Acute renal failure (ARF) N17.9 Acute hypotension I95.9 Methamphetamine abuse F15.10 Cardiac mass I51.89
--- NOTE | 2023-04-05 17:42 | P.PN_ITS ---
Subjective Subjective: Patient was seen and examined this morning, he was afebrile, maintaining a decent MAP, Levophed has been turned off, 2D echo was done, white cell count is trending down, serum creatinine is improving, his other vitals and labs have been reviewed. Medications: Medication Review Details: Generic Name Dose Route Start Last Admin Trade Name Johana PRN Reason Stop Dose Admin Heparin Sodium (Po rcine) 5,000 unit 04/04/23 21:00 04/05/23 07:24 Heparin 5,000 Un it/Ml Inj 1 Ml SUBCUT 5,000 unit Q12H DEBORAH Administration Sodium Chloride 1,000 mls @ 125 m ls/hr 04/04/23 20:45 04/05/23 13:37 Sodium Chloride 0.9% IV 125 mls/hr .Q8H DEBORAH Administration Piperacillin Sod/T azobactam 50 mls @ 12.5 mls /hr 04/05/23 00:00 04/05/23 15:57 Sod 3.375 gm/ So dium Chloride IV 12.5 mls/hr Q8H DEBORAH Administration Protocol Norepinephrine Bit artrate 4 mg 254 mls @ 0 mls/h r 04/04/23 21:30 04/05/23 09:30 / Dextrose IV 0 mcg/min .Q0M DEBORAH 0 mls/hr Titration Protocol Per Protocol Pantoprazole Sodiu m 40 mg 04/05/23 09:00 04/05/23 07:24 Pantoprazole 40 Mg Sdv IVP 40 mg DAILY DEBORAH Administration Vitals/I&O/Wt Last Vital Signs Temp 98.2 F 04/05/23 05:00 Pulse 90 04/05/23 16:00 Resp 18 04/05/23 16:00 BP 135/68 04/05/23 16:00 Pulse Ox 96 04/05/23 13:30 O2 Del Method Nasal Cannula 04/05/23 08:16 O2 Flow Rate 2 04/05/23 08:16 04/05/23 04/05/23 04/05/23 06:59 14:59 22:59 Intake Total 1190.977 / 4297.956 1681.623 / 1681.623 Output Total 1000 / 1000 Balance 190.977 / 3297.956 1681.623 / 1681.623 Weight last 48 hrs Weight 93.894 kg Weight 92.986 kg Physical Exam Const: COMMON NORMALS: patient oriented x3 HENMT: COMMON NORMALS: normocephalic and atraumatic HEAD & SCALP: normocephalic and atraumatic Resp: COMMON NORMALS: clear to auscultation bilaterally EFFORT & INSPECTION: Yes symmetric chest movement AUSCULTATION: clear to auscultation bilaterally Cardio: COMMON NORMALS: regular rate, regular rhythm, S1 normal heart sound present, S2 normal heart sound present, No gallops present (Cardio), No murmurs present (Cardio), No rub (Cardio) and Peripheral pulses 2+ throughout RATE: regular rate RHYTHM: regular rhythm HEART SOUNDS: S1 normal heart sound present and S2 normal heart sound present PERIPHERAL PULSES: Peripheral pulses 2+ throughout GI: COMMON NORMALS: Normal to inspection, nondistended, normoactive bowel sounds present, Soft to palpation, non-tender, No hepatosplenomegaly present and no masses AUSCULTATION: Yes normoactive bowel sounds PALPATION: Yes Soft to palpation and Yes No hepatosplenomegaly present RECTAL EXAM: Yes deferred Extremity: COMMON NORMALS: no clubbing, cyanosis or edema and no pedal edema Neuro: COMMON NORMALS: patient oriented x3 Urinary Catheter Management: Cha: Cath Placed During This Visit: yes Reason for Continuing Indwelling Catheter: Accurate Measurement of Urinary Outp ut in Critically Ill Patients Urinary Catheter Date of Insertion: 04/04/23 Urinary Catheter Time of Insertion: 21:35 Data 04/05/23 02:18 04/05/23 02:18 Micro: Microbiology 04/04/23 17:30 Blood Culture - Preliminary Blood NEGATIVE TO DATE 04/04/23 17:21 Blood Culture - Preliminary Blood NEGATIVE TO DATE 04/04/23 23:16 MRSA Culture - Final Nose A&P Assessment and plan (1) Shock: (2) NIYA (acute kidney injury): (3) Methamphetamine abuse: (4) Uncontrolled type 2 diabetes mellitus: Qualifiers: Glycemic state: with hyperglycemia Qualified Code(s): E11.65 - Type 2 diabetes mellitus with hyperglycemia (5) Septic shock: Plan 62 year old male with PMH of COPD, hypertension, prostate cancer, diabetes, methamphetamine abuse was sent from the podiatry clinic for low blood pressure, he goes to Dr. Blue's office for a wound check due to recent ankle surgery. Patient has been behaving erratic in the last few days, has been confused, he was recently found underneath a street light, do not remember anything, that how he landed there, according to her daughter, patient is having low blood pressure since Tuesday.Currently he is being managed for. Assessment: Septic shock: Possibly secondary to infective endocarditis, possible other causes. Follow Blood culture: Urine culture: MRSA PCR negative CT chest abdomen and pelvis without contrast: Result reviewed. No significant acute finding, suggestive of an infectious source. 2D echo: Has shown normal LV size and systolic function, with no RWMA, LVEF of 70%, normal diastolic function,There is highly mobile echogenic globular appearing mass in ?right atrium that seems to be attached to right atrial wall, suspicious for infective endocarditis or right atrial thrombus. Currently patient is empirically covered with broad-spectrum antibiotics vancomycin and Zosyn. Cardiology on board for WILI. In case of right atrial thrombus: Patient will have to be on therapeutic anticoagulation. For now we will hold of for WILI results. Initially patient was on Levophed has been turned off. Currently he is maintaining a decent MAP. NIYA on CKD: Admission serum creatinine is 3.4 Baseline serum creatinine unknown Monitor and output charting Avoid nephrotoxic's Renal ultrasound Monitor BMP Random urine sodium Random urine creatinine FENA Currently on gentle IV hydration with normal saline 75 cc an hour History of diabetes: LDSSI, monitor fingerstick glucose Diabetic diet History of hypertension: Currently home antihypertensive on hold Monitor blood pressure follow History of COPD: DuoNebs Supplemental oxygen as needed CODE STATUS: Full code DVT prophylaxis on subcu heparin Attestations Medical Necessity Statement*: Needs to be in hospital for management of septic shock. Critical Care Time: The high probability of a clinically significant, sudden or life threatening deterioration of the patient's [] system(s) required my full and direct attention, intervention and personal management. The critical care time is as shown. This time is in addition to time spent performing any reported procedures but includes the following: [x] Data and vital sign review and interpretation [x] Patient assessment, examination and intervention [x] Documentation [x] Medication orders and management Critical Care Time (min): 40 Coding Level of Care Code Acute Code for [facility] Diagnoses Shock R57.9 NIYA (acute kidney injury) N17.9 Methamphetamine abuse F15.10 Uncontrolled type 2 diabetes mellitus E11.65 Glycemic state: with hyperglycemia Septic shock A41.9; R65.21
[2023-04-05] MEDS: vancomycin 1,000 MG in sodium chloride 0.9% 250 ML 250 MG IV (20:48)
[2023-04-05 21:25] LABS: Glucose Point of Care 176 mg/dL (70-110)
[2023-04-05] MEDS: sodium chloride 0.9% 1,000 ML 75 ML IV (22:57)
[2023-04-06] VITALS (50 sets, daily range): BP systolic 114–177; BP diastolic 62–89; PULSE 71–102; RESP 12–28; TEMP 36.6–36.9; O2SAT 90–100
[2023-04-06] MEDS: piperacillin-tazobactam 3.375 GM in sodium chloride 0.9% (plus) 50 ML IV ×3 (00:03→16:41)
--- NOTE | 2023-04-06 01:13 | PC.PHAR ---
Vancomycin Trough to be drawn 04/07 @1999, please hold 2100 dose until drawn Will continue to follow. Thank you, Yanna Nichole [facility]
[2023-04-06 03:06] LABS: Basophils % 0.4 %; Eosinophils # 0.4 10^3/uL (0.0-0.8); Eosinophils % 4.1 %; Hematocrit 31.6 % (42.0-52.0); Hemoglobin 9.2 g/dL (11.7-16.6); Lymphocytes # 3.6 10^3/uL (0.8-4.8); Mean Corpuscular HGB Conc 29.1 g/dL (30.0-36.0); Mean Corpuscular Hemoglobin 26.7 pg (28.0-34.0); Mean Corpuscular Volume 91.6 fl (80-94); Mean Platelet Volume 10.1 fL (7.4-10.4); Monocytes # 0.7 10^3/uL (0.2-0.9); Monocytes % 7.6 %; Neutrophils % 50.7 %; Nucleated Red Blood Cells % 0 %; Platelet Count 350 10^3/cmm (130-400); Red Blood Count 3.45 10^6/uL (4.1-5.3); Red Cell Distribution Width 15.9 % (12.1-15.1); White Blood Count 9.7 10^3/uL (4.0-10.0)
[2023-04-06 03:23] LABS: Alanine Aminotransferase 6 U/L (0-41); Albumin Level 2.9 g/dL (3.5-5.2); Alkaline Phosphatase 132 U/L (40-130); Anion Gap 10.5 (5-19); Aspartate Amino Transferase 29 U/L (0-40); Blood Urea Nitrogen 16 mg/dL (8-23); Calcium 8.4 mg/dL (8.5-10.5); Carbon Dioxide 25 mmol/L (22-29); Chloride 108 mmol/L (98-107); Globulin 3.2 g/dL (1.3-4.6); Glomerular Filtration Rate 43.9 mL/min (90-130); Glucose 137 mg/dL (65-115); Osmolality Calculated 291 mOsm/kg (285-295); Potassium 4.5 mmol/L (3.5-5.1); Sodium 139 mmol/L (136-145); Total Bilirubin 0.2 mg/dL (0.15-1.2); Total Protein 6.1 g/dL (6.6-8.7)
[2023-04-06 06:28] LABS: Glucose Point of Care 148 mg/dL (70-110)
--- NOTE | 2023-04-06 06:39 | USCV_ITS ---
Rg Sanchez Age: 62 Gender: M : 1960 Exam Date: 04/06/2023 07:08 Ordering Phys: Ferdinand Perez M.D ([email or web address]) Technologist: ADARSH Exam Location: [facility] [place] Indication: EVAL FOR POSSIBLE MASS BP: 163 / 90 HR: 89 Rhythm: Sinus Technical Quality: Adequate MEASUREMENTS (Male / Female) Normal Values Medications Complications None Proc. Components After sedation was administered by anesthesia team, we advanced the WILI probe. FINDINGS Left Ventricle Left ventricle is normal in size and function. Right Ventricle Normal in size and function. Below the tricuspid valve, there is a 1.0x1.1cm echogenic mass seen. It does not clearly seem to be attached to the valve and is in close proximity to interventricular septum/aortic root. Right Atrium Normal in size. No mass is noted Left Atrium Normal in size LA Appendage No left atrial appendage thrombus seen. IA Septum Appears to be normal Mitral Valve Structurally normal mitral valve. Aortic Valve Normal Tricuspid Valve A 0.6cm echogenic structure is seen at the base of tricuspid valve. This is suspicious for a vegetation. Pulmonic Valve Grossly normal Pericardium Normal Aorta Has moderate atherosclerotic plaque CONCLUSIONS Left ventricle is normal in size and function. Below the tricuspid valve, there is a 1.0x1.1cm echogenic mass seen. It does not clearly seem to be attached to the valve and is in close proximity to interventricular septum/aortic root. A 0.6cm echogenic structure is seen at the base of tricuspid valve. This is suspicious for a vegetation. Aorta has a moderate atherosclerotic plaque Ferdinand Perez MD (Electronically Signed) Final Date: 06 April 2023 11:36 S
--- NOTE | 2023-04-06 06:51 | ANES.PAUD2 ---
Pre-Anesthetic Update Pre-Anesthetic Assessment: Date of Surgery/Procedure: 04/06/23 Proposed Procedure: WILI Any changes to Pre-Anesthetic Assessment?: Yes Changes from Pre-Anesthetic Assessment: NIYA on possible IE Labs Last 48hrs: Short CBC 04/04/23 04/05/23 04/06/23 Range/Units 17:13 02:18 02:10 WBC 13.3 H 11.7 H 9.7 (4.0-10.0) 10^3/ uL Hgb 9.6 L 8.8 L 9.2 L (11.7-16.6) g/dL Hct 32.7 L 30.6 L 31.6 L (42.0-52.0) % MCV 90.3 92.2 91.6 (80-94) fl Plt Count 394 330 350 (130-400) 10^3/c mm Neut % (Auto) 59.0 47.5 50.7 % Neut # (Auto) 7.85 H 5.53 4.90 (1.8-7.7) 10^3/u L BMP 04/04/23 04/05/23 04/06/23 17:13 02:18 02:10 Sodium 137 138 139 Potassium 4.5 4.6 4.5 Chloride 101 107 108 H Carbon Dioxide 24 23 25 BUN 32 H 28 H 16 Creatinine 3.4 H 2.9 H 1.6 H Glucose 159 H 208 H 137 H Calcium 8.6 8.5 8.4 L Liver Function 04/04/23 04/05/23 04/06/23 Range/Units 17:13 02:18 02:10 Total Bilirubin 0.2 0.2 0.2 (0.15-1.2) mg/dL AST 28 29 29 (0-40) U/L ALT 11 12 6 (0-41) U/L Alkaline Phosphata se 124 118 132 H (40-130) U/L Albumin 3.5 2.9 L 2.9 L (3.5-5.2) g/dL Urine 04/04/23 Range/Units 17:53 Urine Color Dark yellow (Yellow) Urine Appearance Clear (CLEAR) Urine pH 5 (5-7) Ur Specific Gravit y 1.030 (1.005-1.030) Urine Protein Neg (Negative) Urine Glucose (UA) Norm (Normal) Urine Ketones Negative (Negative) Urine Nitrate Negative (Negative) Urine Bilirubin 1+ H (Negative) Ur Leukocyte Rocío ase Negative (Negative) Coags 04/05/23 02:18 PT 15.20 H INR 1.16 Vitals: Temperature 98.4 F 04/06/23 01:45 Temperature Source Axillary 04/06/23 01:45 Pulse Rate 91 04/06/23 06:00 Pulse Rhythm Regular 04/06/23 00:00 Pulse Strength 3+ Normal 04/06/23 00:00 Respiratory Rate 23 H 04/06/23 06:00 Respiratory Effort Spontaneous, Non- Labored 04/06/23 00:00 Respiratory Depth Normal 04/06/23 00:00 Respiratory Patter n Normal 04/04/23 21:11 Blood Pressure 177/89 04/06/23 06:00 Blood Pressure Maren n 118 04/06/23 06:00 Blood Pressure Pos ition Semi Fowlers 04/05/23 20:00 Pulse Oximetry 93 04/06/23 06:00 Oxygen Delivery Me thod Nasal Cannula 04/06/23 06:00 Oxygen Flow Rate 1 04/06/23 06:00 Sepsis Recent Feve r Within 48 Hours No 04/04/23 16:31 Sepsis New/Unexpla ined Change in Men wilson Status No 04/04/23 16:31 Exam: Pre-Anes Outpt Exam: alert, oriented x 3, clear to auscultation bilaterally and regular rate & rhythm Cardiac Studies: Echocardiogram 04/05/23
--- NOTE | 2023-04-06 08:06 | W.PM.OPSUD ---
Surgery/Procedure H&P Update DATE OF PROCEDURE: April 06, 2023 DATE H&P PERFORMED: 04/05/24 H&P UPDATE INFORMATION: I have reviewed H&P completed within last 30 days, I have examined patient prior to procedure and No changes to prior documentation PREOP DIAGNOSIS: Cardiac mass PRIMARY INDICATION FOR PROCEDURE: Cardiac mass PLANNED PROCEDURE: Transesophageal echocardiogram Anesthesia team available for sedation
--- NOTE | 2023-04-06 08:07 | P.PN_ITS ---
Subjective Subjective: He is overall doing well. Underwent WILI today. Patient was found to have a suspicious 0.6 cm diameter echogenic structure at the base of the tricuspid valve. In the clinical scenario, we will treat it as a vegetation. There is another mass seen below the tricuspid valve in the ventricle. This is more organized. We will recommend MRI to assess it as visualization was limited on it. Vitals/I&O/Wt Last Vital Signs Temp 98.4 F 04/06/23 01:45 Pulse 91 04/06/23 06:00 Resp 23 H 04/06/23 06:00 BP 177/89 04/06/23 06:00 Pulse Ox 93 04/06/23 06:00 O2 Del Method Nasal Cannula 04/06/23 06:00 O2 Flow Rate 1 04/06/23 06:00 04/05/23 04/06/23 04/06/23 22:59 06:59 14:59 Intake Total 1550 / 3231.623 50 / 3281.623 Output Total 1650 / 1650 1750 / 3400 Balance -100 / 1581.623 -1700 / -118.377 Weight last 48 hrs Weight 207 lb Weight 205 lb Physical Exam Narrative: GENERAL: Patient is alert, awake and oriented x3. [] NECK: No jugular vein distension. [] HEENT: No cyanosis. No icterus. No pallor. [] HEART: Regular S1 and S2. No murmur, rub or gallop. [] LUNGS: Clear to auscultate bilaterally. [] CENTRAL NERVOUS SYSTEM: Grossly nonfocal. [] EXTREMITIES: Lower extremities with no edema Urinary Catheter Management: Cha: Cath Placed During This Visit: yes Reason for Continuing Indwelling Catheter: Accurate Measurement of Urinary Out put in Critically Ill Patients Urinary Catheter Date of Insertion: 04/04/23 Urinary Catheter Time of Insertion: 21:35 Data 04/07/23 03:50 04/07/23 03:50 Micro: Microbiology 04/04/23 17:30 Blood Culture - Preliminary Blood NEGATIVE TO DATE 04/04/23 17:21 Blood Culture - Preliminary Blood NEGATIVE TO DATE 04/04/23 23:16 MRSA Culture - Final Nose A&P Assessment and plan (1) Septic shock: (2) Acute renal failure (ARF): (3) Acute hypotension: (4) Methamphetamine abuse: (5) Cardiac mass: Plan Transesophageal echocardiogram demonstrated 0.6 cm suspicious echogenic structure at the base of tricuspid valve on the ventricular side. In current scenario, we recommend treating as infective endocarditis. There is another mass seen below tricuspid valve on the ventricular side. This will need cardiac CT versus MRI for better assessment. Appropriate to perform CTA to rule out PE once patient's renal function is stable. Thank you for involving us with care of this patient. We will continue to follow. Please call with questions. Attestations Medical Necessity Statement*: Care expected to cross 2 midnights. Coding Level of Care Code Acute Code for [facility] Fwd Diagnoses Septic shock A41.9; R65.21 Acute renal failure (ARF) N17.9 Acute hypotension I95.9 Methamphetamine abuse F15.10 Cardiac mass I51.89
--- NOTE | 2023-04-06 09:49 | USCV_ITS ---
Rg Sanchez Age: 62 Gender: M : 1960 Exam Date: 04/06/2023 13:54 Ordering Phys: Deshawn Jean MD Technologist: ADARSH [place]am Location[place] [facility] [place]: HYPOXIA HISTORY: HYPOXIA PROCEDURES: Venous duplex imaging was performed in bilateral lower extremities. The following venous structures were evaluated: common femoral vein, profunda vein, proximal portion of the greater saphenous vein, superficial femoral vein, and the popliteal vein. In addition, the posterior tibial and peroneal trunk were evaluated. Serial compression, augmentation maneuvers, and spectral Doppler flow evaluation were performed. FINDINGS: No evidence of DVT seen in any vessel visualized at this time. Examination was technically limited due to body habitus. Left PTV and Peroneal veins not seen due to hard cast on lower leg CONCLUSIONS No evidence of right lower extremity DVT. No evidence of left lower extremity DVT. Technically difficult exam Left PTV and peroneal veins not seen due to hard cast Raf Day MD (Electronically Signed) Final Date: 06 April 2023 16:22 S
[2023-04-06] MEDS: acetaminophen 325 mg Tablet 650 MG PO (10:05)
[2023-04-06] MEDS: insulin lispro 100 unit/1 mL SUBCUT ×3 (10:08→18:20)
[2023-04-06] MEDS: heparin 5,000 unit/mL INJ 1 mL 5000 UNIT SUBCUT ×2 (10:08→20:43)
[2023-04-06] MEDS: pantoprazole 40 mg SDV IVP (10:10)
[2023-04-06] MEDS: sodium chloride 0.9% 1,000 ML 75 ML IV (10:51)
[2023-04-06 11:02] LABS: Erythrocyte Sedimentation Rate 46 mm/hr (0-10)
[2023-04-06 11:19] LABS: Glucose Point of Care 178 mg/dL (70-110)
[2023-04-06] MEDS: oxyCODONE 5 mg IR Tab/Cap PO ×3 (11:41→20:42)
--- NOTE | 2023-04-06 15:59 | PC.PHAR ---
PHARMACY TO DOSE CONSULT - VANCOMYCIN With the patient's improvement in overall CrCl, the new calculated dose of vancomycin is 1250mg every 18 hours for a predicted peak of 31.2 mcg/ml and trough of 13.34 mcg/ml. Pharmacy will continue to monitor the patient's renal function and trough levels, making changes as necessary. Please let us know if there is anything else we can do in the care of this patient. Thanks, Guanako Murguia, Pharm.D
[2023-04-06] MEDS: vancomycin 1,250 MG/250 ML PIGGYBACK 250 MG IV (16:42)
--- NOTE | 2023-04-06 16:57 | PM.PN ---
Subjective Subjective: Rg: Good. No particular concerns right now. Wondering about pain medicine. He is typically on a fair amount of oxycodone. Medications: Reviewed: Yes Vitals/I&O/Wt Last Vital Signs Temp 98.4 F 04/06/23 01:45 Pulse 76 04/06/23 15:00 Resp 16 04/06/23 16:44 BP 151/69 04/06/23 15:00 Pulse Ox 96 04/06/23 16:44 O2 Del Method Nasal Cannula 04/06/23 15:00 O2 Flow Rate 1 04/06/23 15:00 04/06/23 04/06/23 04/06/23 06:59 14:59 22:59 Intake Total 50 / 3281.623 1302.5 / 1302.5 Output Total 1750 / 3400 900 / 900 Balance -1700 / -118.377 402.5 / 402.5 Weight last 48 hrs Weight 93.894 kg Physical Exam Narrative: There was no distress Neck is supple no lymphadenopathy thyromegaly Cardiovascular regular rate and rhythm, no murmur Lungs clear no wheezing or crackles Abdomen is soft with positive bowel sounds. No obvious organomegaly exam deferred Extremities no cyanosis clubbing edema, cap refill brisk Skin no rash Urinary Catheter Management: Cha: Cath Placed During This Visit: yes Reason for Continuing Indwelling Catheter: Accurate Measurement of Urinary Output in Critically Ill Patients Urinary Catheter Date of Insertion: 04/04/23 Urinary Catheter Time of Insertion: 21:35 Data 04/06/23 02:10 04/06/23 02:10 Other Labs: Blood cultures negative to date Micro: Microbiology 04/04/23 17:53 Urine Culture - Final Urine Catheterized 04/04/23 17:30 Blood Culture - Preliminary Blood NEGATIVE TO DATE 04/04/23 17:21 Blood Culture - Preliminary Blood NEGATIVE TO DATE A&P Assessment and plan (1) Septic shock: Resolved Currently on IV antibiotics of vancomycin and Zosyn Recheck CBC tomorrow Antihypertensives currently. Secondary to marked hypotension, consider CTA when renal function improved. Initial CT chest abdomen pelvis was done without contrast (2) NIYA (acute kidney injury): Significantly improving. Recheck BMP tomorrow Bactrim discontinued, MARCIAL inhibitor discontinued (3) Cardiac mass: WILI performed demonstrates cardiac mass below tricuspid valve. This is suspicious for vegetation. CRP and ESR Blood cultures negative It appears he may have come in on Bactrim, and therefore may be partially treated. Continue vancomycin and Zosyn. May need a PICC line, but this would pose a risk in a methamphetamine user. (4) Methamphetamine abuse: Counseled. Not interested in rehab. Referred to discharge planning for more information. (5) Uncontrolled type 2 diabetes mellitus: Sliding scale insulin Qualifiers: Glycemic state: with hyperglycemia Qualified Code(s): E11.65 - Type 2 diabetes mellitus with hyperglycemia Plan Anemia, stool hemoccult pending Recent orthopedic surgery. Venous duplex negative. Multiple other medical problems as outlined in past medical history Full code Heparin for DVT prophylaxis Attestations Medical Necessity Statement*: Needs continued hospital stay for IV antibiotics secondary to concern of endocarditis Diagnoses Septic shock A41.9; R65.21 NIYA (acute kidney injury) N17.9 Cardiac mass I51.89 Methamphetamine abuse F15.10 Uncontrolled type 2 diabetes mellitus E11.65 Glycemic state: with hyperglycemia Time Spent (min) 38
[2023-04-06 18:18] LABS: Glucose Point of Care 154 mg/dL (70-110)
--- NOTE | 2023-04-06 19:35 | PC.NURSE ---
Shift summary; Pt rested i bed except for usig the BSC. VSS. Sinus rhythm noted on monitor. Pt afebrile . Right CVL patent with IVF infusing. Vancomycin and Zosyn administered today. Pt does complain of generalized pain , he has received Oxy IR twice this shift. WILI completed, probable vegetation noted near the tricuspid. Pt has ate his meals well. Copious BM x1 noted. Urine output of 2300ml this shift. Pt to transfer to [facility]
--- NOTE | 2023-04-06 19:50 | PC.NURSE ---
Report called to [facility]. Report given to [facility]. Life partner Maribell Crooks called and notified of transfer to room 259-1.
--- NOTE | 2023-04-06 20:06 | PC.NURSE ---
Transferred to [facility] @1954. Family called.
[2023-04-06] MEDS: gabapentin 300 mg Capsule PO (20:43)
[2023-04-06 20:56] LABS: Glucose Point of Care 272 mg/dL (70-110)
[2023-04-07] VITALS (14 sets, daily range): BP systolic 150–185; BP diastolic 60–94; PULSE 73–98; RESP 17–18; TEMP 36.6–37.2; O2SAT 2–94
[2023-04-07] MEDS: sodium chloride 0.9% 1,000 ML 75 ML IV (00:02)
[2023-04-07] MEDS: piperacillin-tazobactam 3.375 GM in sodium chloride 0.9% (plus) 50 ML IV ×2 (00:02→08:41)
[2023-04-07 04:12] LABS: Basophils # 0.1 10^3/uL (0.0-0.1); Basophils % 0.6 %; Eosinophils # 0.5 10^3/uL (0.0-0.8); Hematocrit 35.2 % (42.0-52.0); Hemoglobin 10.3 g/dL (11.7-16.6); Lymphocytes # 3.4 10^3/uL (0.8-4.8); Lymphocytes % 38.5 %; Mean Corpuscular HGB Conc 29.3 g/dL (30.0-36.0); Mean Corpuscular Hemoglobin 26.5 pg (28.0-34.0); Mean Corpuscular Volume 90.5 fl (80-94); Mean Platelet Volume 9.9 fL (7.4-10.4); Monocytes # 0.6 10^3/uL (0.2-0.9); Monocytes % 6.4 %; Neutrophils % 48.2 %; Nucleated Red Blood Cells % 0 %; Platelet Count 373 10^3/cmm (130-400); Red Blood Count 3.89 10^6/uL (4.1-5.3); Red Cell Distribution Width 15.8 % (12.1-15.1); White Blood Count 8.7 10^3/uL (4.0-10.0)
[2023-04-07 04:35] LABS: Alanine Aminotransferase 12 U/L (0-41); Albumin Level 3.2 g/dL (3.5-5.2); Alkaline Phosphatase 106 U/L (40-130); Aspartate Amino Transferase 18 U/L (0-40); Blood Urea Nitrogen 12 mg/dL (8-23); Calcium 8.7 mg/dL (8.5-10.5); Carbon Dioxide 28 mmol/L (22-29); Chloride 106 mmol/L (98-107); Globulin 3.2 g/dL (1.3-4.6); Glomerular Filtration Rate 67.6 mL/min (90-130); Glucose 116 mg/dL (65-115); Osmolality Calculated 291 mOsm/kg (285-295); Sodium 140 mmol/L (136-145); Total Bilirubin 0.2 mg/dL (0.15-1.2); Total Protein 6.4 g/dL (6.6-8.7)
[2023-04-07] MEDS: oxyCODONE 5 mg IR Tab/Cap PO ×4 (05:50→20:28)
[2023-04-07 06:48] LABS: Glucose Point of Care 120 mg/dL (70-110)
--- NOTE | 2023-04-07 07:50 | PM.PN ---
Subjective Subjective: patient is stable. No chest pain. Plan for transfer to [place] for cardiac MRI Vitals/I&O/Wt Last Vital Signs Temp 98.3 F 04/07/23 05:00 Pulse 73 04/07/23 05:55 Resp 18 04/07/23 05:50 BP 160/85 04/07/23 05:00 Pulse Ox 2 L 04/07/23 05:50 O2 Del Method Nasal Cannula 04/06/23 15:00 O2 Flow Rate 1 04/06/23 15:00 04/06/23 04/07/23 04/07/23 22:59 06:59 14:59 Intake Total 300 / 1602.5 1278.75 / 2881.25 Output Total 1600 / 2500 1200 / 3700 Balance -1300 / -897.5 78.75 / -818.75 Weight last 48 hrs Weight 210 lb 6 oz Physical Exam Narrative: GENERAL: Patient is alert, awake and oriented x3. [] NECK: No jugular vein distension. [] HEENT: No cyanosis. No icterus. No pallor. [] HEART: Regular S1 and S2. No murmur, rub or gallop. [] LUNGS: Clear to auscultate bilaterally. [] CENTRAL NERVOUS SYSTEM: Grossly nonfocal. [] EXTREMITIES: Lower extremities with no edema Urinary Catheter Management: Cha: Cath Placed During This Visit: yes Reason for Continuing Indwelling Catheter: Acute Urinary Retention or Obstruction Urinary Catheter Date of Insertion: 04/04/23 Urinary Catheter Time of Insertion: 21:35 Data 04/07/23 03:50 04/07/23 03:50 Micro: Microbiology 04/06/23 11:11 Occult Blood (FIT) - Final Stool Routine Collection 04/04/23 17:53 Urine Culture - Final Urine Catheterized A&P Assessment and plan (1) Septic shock: (2) Acute renal failure (ARF): (3) Acute hypotension: (4) Methamphetamine abuse: (5) Cardiac mass: Plan Given WILI findings, MRI was recommended. Patient is going to be transferred to [place] for cardiac MRI. Thank you for involving us with care of this patient. Please call with questions. Attestations Medical Necessity Statement*: Care expected to cross 2 midnights. Coding Level of Care Code Acute Code for [facility] Fwd Diagnoses Septic shock A41.9; R65.21 Acute renal failure (ARF) N17.9 Acute hypotension I95.9 Methamphetamine abuse F15.10 Cardiac mass I51.89
[2023-04-07] MEDS: heparin 5,000 unit/mL INJ 1 mL 5000 UNIT SUBCUT ×2 (08:41→20:23)
[2023-04-07] MEDS: pantoprazole 40 mg SDV IVP (08:41)
[2023-04-07] MEDS: gabapentin 300 mg Capsule PO ×3 (08:41→20:23)
--- NOTE | 2023-04-07 08:47 | CT_ITS ---
WS: [id number] CTA OF THE CHEST WITH PULMONARY EMBOLISM PROTOCOL TECHNIQUE: High-resolution contrast enhanced CTA of the chest with coronal and sagittal reformatted i mages with pulmonary embolism protocol. MIP images are also reviewed. CLINICAL INFORMATION: hypoxia COMPARISON: CT April 05, 2023 DLP: 460.[address] scans at [facility] use at least one of these dose optimization techniques: automated e xposure control; mA and/or kV adjustment per patient size (includes targeted exams where dose is matc hed to clinical indication); or iterative reconstruction. FINDINGS:Proximal main pulmonary arteries are normal. Normal segmental and subsegmental pulmonary art eries. No evidence of pulmonary embolus. Moderate chronic emphysematous changes. Tiny bilateral pleural effusions compressive atelectasis in t he lung bases slightly increased compared to previous. Calcified granulomas. Normal caliber thoracic aorta. Aortic calcification. Calcified mediastinal lymph nodes. Mild coronary calcification. Small es ophageal hiatal hernia. Splenic granulomas. Hepatic granulomas. Bilateral adrenal nodules likely soledad omas unchanged. Partially visualized abdominal aortic endograft. CT/CT angio chest PE protcl [id number] IMPRESSION: 1. No evidence of pulmonary embolus. 2. Proximal main pulmonary arteries are normal. 3. Moderate chronic emphysematous changes. 4. Tiny pleural effusions with compressive atelectasis in the lung bases. 5. Small esophageal hiatal hernia.
[2023-04-07 10:48] LABS: Glucose Point of Care 135 mg/dL (70-110)
--- NOTE | 2023-04-07 10:50 | PM.PN ---
Subjective Subjective: Rg reports he feels a lot better. Was on Bactrim prior to this presentation. Reports he is not using any methamphetamine in the future. We discussed the fact that a PICC line may be indicated for potential endocarditis, and this would be a significant risk. He is willing to take the risk if we decide to place a PICC. With his methamphetamine use. We discussed and/or permanent disability.Again, he reports he will not be using methamphetamine in the future. Medications: Reviewed: Yes Vitals/I&O/Wt Last Vital Signs Temp 98.4 F 04/07/23 07:51 Pulse 83 04/07/23 07:51 Resp 17 04/07/23 07:51 BP 185/94 04/07/23 07:51 Pulse Ox 90 04/07/23 07:51 O2 Del Method Nasal Cannula 04/06/23 15:00 O2 Flow Rate 1 04/06/23 15:00 04/06/23 04/07/23 04/07/23 22:59 06:59 14:59 Intake Total 300 / 1602.5 1278.75 / 2881.25 200 / 200 Output Total 1600 / 2500 1200 / 3700 Balance -1300 / -897.5 78.75 / -818.75 200 / 200 Weight last 48 hrs Weight 95.424 kg Physical Exam Narrative: No distress Neck is supple no lymphadenopathy thyromegaly Cardiovascular regular rate and rhythm without murmur Lungs clear Abdomen is soft with positive bowel sounds. No obvious distress Skin no rash Urinary Catheter Management: Cha: Cath Placed During This Visit: yes Reason for Continuing Indwelling Catheter: Acute Urinary Retention or Obstruction Urinary Catheter Date of Insertion: 04/04/23 Urinary Catheter Time of Insertion: 21:35 Data 04/07/23 03:50 04/07/23 03:50 Micro: Microbiology 04/06/23 11:11 Occult Blood (FIT) - Final Stool Routine Collection 04/04/23 17:53 Urine Culture - Final Urine Catheterized A&P Assessment and plan (1) Septic shock: Resolved Currently on IV antibiotics of vancomycin and Zosyn Discontinue Zosyn today. Culture still negative. Antihypertensives currently. Secondary to marked hypotension on arrival, CTA chest will be done today (2) NIYA (acute kidney injury): Resolved. Recheck BMP tomorrow Bactrim discontinued, MARCIAL inhibitor discontinued (3) Cardiac mass: WILI performed demonstrates cardiac mass below tricuspid valve. This is suspicious for vegetation. ESR elevated Blood cultures negative It appears he may have come in on Bactrim, and therefore may be partially treated. Continue vancomycin, discontinue Zosyn. May need a PICC line, but this would pose a risk in a methamphetamine user. Ultimately needs cardiac MRI or cardiac CT to differentiate. Consider as an outpatient. Exact plans not made yet, as awaiting CTA of chest to exclude pulmonary embolism. (4) Methamphetamine abuse: Counseled. Not interested in rehab. Referred to discharge planning for more information. (5) Uncontrolled type 2 diabetes mellitus: Sliding scale insulin Qualifiers: Glycemic state: with hyperglycemia Qualified Code(s): E11.65 - Type 2 diabetes mellitus with hyperglycemia Plan Anemia, stool hemoccult positive, hgb stable. Continue Protonix Hypertension. NOt well controlled. Add Norvasc. Recent orthopedic surgery. Venous duplex negative. Multiple other medical problems as outlined in past medical history Full code Heparin for DVT prophylaxis discontinue Cha Attestations Medical Necessity Statement*: Needs continued hospital stay for evaluation of sepsis, syncope, with CTA of chest and continue antibiotics for cardiac vegetation suspicious for endocarditis Diagnoses Septic shock A41.9; R65.21 NIYA (acute kidney injury) N17.9 Cardiac mass I51.89 Methamphetamine abuse F15.10 Uncontrolled type 2 diabetes mellitus E11.65 Glycemic state: with hyperglycemia Time Spent (min) 29
--- NOTE | 2023-04-07 11:00 | PC.PHAR ---
[id number] VANCOMYCIN: Another improvement in renal function 1.6 to 1.1 . frequency changed to q12h. Trough added for 04/08 @2300
[2023-04-07] MEDS: iohexol 350 mg/mL 500 mL Btl (per mL) IV (11:47)
[2023-04-07] MEDS: amlodipine 5 mg Tablet PO (12:03)
[2023-04-07] MEDS: vancomycin 1,250 MG/250 ML PIGGYBACK 250 MG IV (12:04)
--- NOTE | 2023-04-07 15:07 | P.EN_ITS ---
Event Note Event Note: Discussed concerns with patient, energy efficient site manager here, energy efficient site manager at [facility] as well as hospitalist service. Patient needs a cardiac MRI. We will transfer him to [facility], get cardiac MRI, and accept him back. This way we can differentiate if he needs continued antibiotics for endocarditis in regards to the mass that was seen on his WILI. Patient agrees to transfer, and risks thereof.
--- NOTE | 2023-04-07 15:07 | W.PM.EVENTAC ---
Event Note Event Note: Discussed concerns with patient, dust control engineer here, dust control engineer at [facility] as well as hospitalist service. Patient needs a cardiac MRI. We will transfer him to [facility], get cardiac MRI, and accept him back. This way we can differentiate if he needs continued antibiotics for endocarditis in regards to the mass that was seen on his WILI. Patient agrees to transfer, and risks thereof.
[2023-04-07 16:35] LABS: Glucose Point of Care 154 mg/dL (70-110)
--- NOTE | 2023-04-07 17:31 | P.TS_ITS ---
Transfer Summary Providers Date of Admission: 04/04/23 19:33 Date of Discharge/Transfer: 04/07/23 Attending Provider at Admission: Therese Alberto MD Attending Provider at Transfer: Deshawn Jean MD Primary Care Provider: JB Prado Transfer Plans: Anticipated date of transfer: 04/07/23 . Receiving Facility: [facility] . Receiving Provider: Dr. Moreno . Diagnoses at Discharge Discharge Diagnosis (1) Septic shock: Status: Acute (2) NIYA (acute kidney injury): Status: Acute (3) Cardiac mass: Status: Acute (4) Methamphetamine abuse: Status: Acute (5) Uncontrolled type 2 diabetes mellitus: Status: Acute Qualifiers: Glycemic state: with hyperglycemia Qualified Code(s): E11.65 - Type 2 diabetes mellitus with hyperglycemia Reason for Visit Reason for Visit low BP, lethargic Hospital Course Hospital Course Rg is a 62-year-old white male who presented to the hospital on April 04 with hypotension, history of methamphetamine use, acute kidney injury. A CT scan of chest abdomen and pelvis was done which demonstrated no obvious source of infection. Vancomycin and Zosyn were initiated. Norepinephrine was required. He was hydrated significantly. He showed significant improvement, and on further testing his transthoracic echo demonstrated a concern for vegetation. 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 Cardiology recommended cardiac MRI. On patient's arrival blood cultures were done, which showed no growth. However, he had been on Bactrim for the last several weeks secondary to concerns with the surgical site on his left lower extremity. With difficulty differentiating between this being a mass versus vegetation, cardiac MRI was recommended. A CTA was also performed which demonstrated no pulmonary embolism. Patient was very stable, with essentially normal vital signs. He had been afebrile. It was thought he could traverse to get a cardiac MRI in [place], and return to the hospital as a transfer after this evaluation. This will allow us to determine whether IV antibiotics should be continued, up to 6 weeks induration for endocarditis or further evaluation for cardiac mass should occur. Patient agreed with the plan, and transfer was arranged to [facility]. Graciously Dr. Moreno accepted the patient for evaluation, an d ultimately to send back to our facility following cardiac MRI. Physical Exam Narrative: See exam done earlier in the day Urinary Catheter Management: Cha: Cath Placed During This Visit: yes, but has since been removed by the nurse Reason for Continuing Indwelling Catheter: Decision to DC Catheter Urinary Catheter Date of Insertion: 04/04/23 Urinary Catheter Time of Insertion: 21:35 Date Urinary Catheter Removed: 04/07/23 Time Urinary Catheter Discontinued: 11:00 TS Data Studies Completed and Pending Pending at discharge Category Date Time Status BMP [Basic Metabolic Panel] AM LABS Lab 04/08/23 04:00 Ordered Blood Culture Stat Lab 04/04/23 17:30 Results Sputum Culture and Gram Stain Stat Lab 04/04/23 20:40 Uncollected Vancomycin Trough Timed Lab 04/08/23 23:00 Ordered Labs from last 24 hours 04/07/23 04/07/23 04/07/23 16:32 10:45 06:35 WBC RBC Hgb Hct MCV MCH MCHC RDW Plt Count MPV Neut % (Auto) Lymph % (Auto) [place] % (Auto) Eos % (Auto) Baso % (Auto) Neut # (Auto) Lymph # (Auto) [place] # (Auto) Eos # (Auto) Baso # (Auto) Nucleated RBC % (auto) Nucleated RBCs # Sodium Potassium Chloride Carbon Dioxide Anion Gap BUN Creatinine GFR Calculation Glucose POC Glucose 154 H 135 H 120 H Calculated Osmolality Calcium Magnesium Total Bilirubin AST ALT Alkaline Phosphatase Total Protein Albumin Globulin 04/07/23 04/07/23 04/06/23 03:50 03:50 20:40 WBC 8.7 RBC 3.89 L Hgb 10.3 L Hct 35.2 L MCV 90.5 MCH 26.5 L MCHC 29.3 L RDW 15.8 H Plt Count 373 MPV 9.9 Neut % (Auto) 48.2 Lymph % (Auto) 38.5 [place] % (Auto) 6.4 Eos % (Auto) 6.0 Baso % (Auto) 0.6 Neut # (Auto) 4.20 Lymph # (Auto) 3.4 [place] # (Auto) 0.6 Eos # (Auto) 0.5 Baso # (Auto) 0.1 Nucleated RBC % (auto) 0 Nucleated RBCs # 0.0 Sodium 140 Potassium 5.0 Chloride 106 Carbon Dioxide 28 Anion Gap 11.0 BUN 12 Creatinine 1.1 GFR Calculation 67.6 L Glucose 116 H POC Glucose 272 H Calculated Osmolality 291 Calcium 8.7 Magnesium 2.0 Total Bilirubin 0.2 AST 18 ALT 12 Alkaline Phosphatase 106 Total Protein 6.4 L Albumin 3.2 L Globulin 3.2 04/06/23 18:14 WBC RBC Hgb Hct MCV MCH MCHC RDW Plt Count MPV Neut % (Auto) Lymph % (Auto) [place] % (Auto) Eos % (Auto) Baso % (Auto) Neut # (Auto) Lymph # (Auto) [place] # (Auto) Eos # (Auto) Baso # (Auto) Nucleated RBC % (auto) Nucleated RBCs # Sodium Potassium Chloride Carbon Dioxide Anion Gap BUN Creatinine GFR Calculation Glucose POC Glucose 154 H Calculated Osmolality Calcium Magnesium Total Bilirubin AST ALT Alkaline Phosphatase Total Protein Albumin Globulin Completed Studies During Hospitalization Category Date Time Status CT chest abdomen pelvis [[place] [address] Cat Scan 04/05/23 03:14 Completed ] Stat CTA chest [CT angio chest PE protcl [id number]] Routine Cat Scan 04/07/23 08:47 Completed CXRP [XR chest 1V portable [id number]] Stat Exams 04/04/23 22:07 Completed XR chest 1V portable [id number] Stat Exams 04/04/23 17:10 [place] [id number] Routine Ultrasound 04/06/23 09:49 Completed CV. echo complete* [id number] Routine Ultrasound 04/05/23 03:12 Completed WILI [CV. echo transesophageal [id number]] Routine Ultrasound 04/06/23 06:39 Completed Laboratory Last Values WBC 8.7 10^3/uL (4.0-10.0) 04/07/23 03:50 RBC 3.89 10^6/uL (4.1-5.3) L 04/07/23 03:50 Hgb 10.3 g/dL (11.7-16.6) L 04/07/23 03:50 Hct 35.2 % (42.0-52.0) L 04/07/23 03:50 MCV 90.5 fl (80-94) 04/07/23 03:50 MCH 26.5 pg (28.0-34.0) L 04/07/23 03:50 MCHC 29.3 g/dL (30.0-36.0) L 04/07/23 03:50 RDW 15.8 % (12.1-15.1) H 04/07/23 03:50 Plt Count 373 10^3/cmm (130-400) 04/07/23 03:50 MPV 9.9 fL (7.4-10.4) 04/07/23 03:50 Neut % (Auto) 48.2 % 04/07/23 03:50 Lymph % (Auto) 38.5 % 04/07/23 03:50 [place] % (Auto) 6.4 % 04/07/23 03:50 Eos % (Auto) 6.0 % 04/07/23 03:50 Baso % (Auto) 0.6 % 04/07/23 03:50 Neut # (Auto) 4.20 10^3/uL (1.8-7.7) 04/07/23 03:50 Lymph # (Auto) 3.4 10^3/uL (0.8-4.8) 04/07/23 03:50 [place] # (Auto) 0.6 10^3/uL (0.2-0.9) 04/07/23 03:50 Eos # (Auto) 0.5 10^3/uL (0.0-0.8) 04/07/23 03:50 Baso # (Auto) 0.1 10^3/uL (0.0-0.1) 04/07/23 03:50 Nucleated RBC % (auto) 0 % 04/07/23 03:50 Nucleated RBCs # 0.0 /100WBC 04/07/23 03:50 ESR 46 mm/hr (0-10) H 04/06/23 02:10 PT 15.20 SECONDS (12.1-14.9) H 04/05/23 02:18 INR 1.16 (0.8-1.2) 04/05/23 02:18 Sodium 140 mmol/L (136-145) 04/07/23 03:50 Potassium 5.0 mmol/L (3.5-5.1) 04/07/23 03:50 Chloride 106 mmol/L (98-107) 04/07/23 03:50 Carbon Dioxide 28 mmol/L (22-29) 04/07/23 03:50 Anion Gap 11.0 (5-19) 04/07/23 03:50 BUN 12 mg/dL (8-23) 04/07/23 03:50 Creatinine 1.1 mg/dL (0.7-1.2) 04/07/23 03:50 GFR Calculation 67.6 mL/min (90-130) L 04/07/23 03:50 Glucose 116 mg/dL (65-115) H 04/07/23 03:50 POC Glucose 154 mg/dL (70-110) H 04/07/23 16:32 Calculated Osmolality 291 mOsm/kg (285-295) 04/07/23 03:50 Lactic Acid 0.5 mmol/L (0.5-2.2) 04/04/23 22:45 Calcium 8.7 mg/dL (8.5-10.5) 04/07/23 03:50 Magnesium 2.0 mg/dL (1.7-2.3) 04/07/23 03:50 Iron 19 ug/dL (59-158) L 04/05/23 02:18 TIBC 183 mcg/dl 04/05/23 02:18 % Saturation 10.3 % (20-50) L 04/05/23 02:18 Unsat Iron Binding 164 ug/dL (112-347) 04/05/23 02:18 Ferritin 218 ng/mL (30-400) 04/05/23 02:18 Total Bilirubin 0.2 mg/dL (0.15-1.2) 04/07/23 03:50 AST 18 U/L (0-40) 04/07/23 03:50 ALT 12 U/L (0-41) 04/07/23 03:50 Alkaline Phosphatase 106 U/L (40-130) 04/07/23 03:50 Total Protein 6.4 g/dL (6.6-8.7) L 04/07/23 03:50 Albumin 3.2 g/dL (3.5-5.2) L 04/07/23 03:50 Globulin 3.2 g/dL (1.3-4.6) 04/07/23 03:50 Procalcitonin 0.44 ng/mL (0-0.5) 04/04/23 17:13 Urine Color Dark yellow (Yellow) 04/04/23 17:53 Urine Appearance Clear (CLEAR) 04/04/23 17:53 Urine pH 5 (5-7) 04/04/23 17:53 Ur Specific [place] 1.030 (1.005-1.030) 04/04/23 17:53 Urine Protein Neg (Negative) 04/04/23 17:53 Urine Glucose (UA) Norm (Normal) 04/04/23 17:53 Urine Ketones Negative (Negative) 04/04/23 17:53 Urine Blood Neg (Negative) 04/04/23 17:53 Urine Nitrate Negative (Negative) 04/04/23 17:53 Urine Bilirubin 1+ (Negative) H 04/04/23 17:53 Urine Urobilinogen 1 mg/dL (Negative) H 04/04/23 17:53 Ur Leukocyte Esterase Negative (Negative) 04/04/23 17:53 Urine Opiates Screen Negative ng/mL (Negative) 04/04/23 17:53 Ur Barbiturates Screen Negative ng/mL (Negative) 04/04/23 17:53 Ur Phencyclidine Scrn Negative ng/mL (Negative) 04/04/23 17:53 Ur Amphetamines Screen Positive ng/mL (Negative) H 04/04/23 17:53 U Benzodiazepines Scrn Positive ng/mL (Negative) H 04/04/23 17:53 Urine Cocaine Screen Negative ng/mL (Negative) 04/04/23 17:53 U Marijuana (THC) Screen Negative ng/mL (Negative) 04/04/23 17:53 Radiology Impressions Chest X-Ray 04/04/23 22:07 IMPRESSION: 1. No pneumothorax following right jugular line placement. 2. Question of developing infiltrate in the left lower lobe. Follow-up suggested. Chest/Abdomen/Pelvis CT 04/05/23 03:14 IMPRESSION: 1. Emphysematous change, interstitial disease, chronic granulomatous disease, and dependent airspace disease. 2. Additional findings as described above. IMPRESSION: 1.Bifurcated endoluminal stent graft in association stable 3.1 cm abdominal aortic aneurysm and 3.2 cm right common iliac artery aneurysm. 2. Wall thickening in the nondistended stomach. 3. Spinal stenosis at the L3-L4 level along with discogenic sclerosis, vertebral endplate erosive change, and grade 1 anterolisthesis of L3 on L4. 4. Additional findings as described above. COMMENTS: Consistent with the [employer]'s Incidental Findings Committee white paper (J Am Margot Radiol 2018): Any incidental renal lesion less than 1 cm or classified as too small to characterize, or any incidental cystic renal lesion characterized as simple-appearing, is likely benign. No follow-up imaging is recommended for these lesions per consensus recommendations based on imaging criteria. Chest CTA 04/07/23 08:47 IMPRESSION: 1. No evidence of pulmonary embolus. 2. Proximal main pulmonary arteries are normal. 3. Moderate chronic emphysematous changes. 4. Tiny pleural effusions with compressive atelectasis in the lung bases. 5. Small esophageal hiatal hernia. Recent Clincial Data Last Vital Signs Temp 97.9 F 04/07/23 11:22 Pulse 95 04/07/23 16:00 Resp 17 04/07/23 16:41 BP 167/83 04/07/23 16:00 Pulse Ox 94 04/07/23 16:00 O2 Del Method Nasal Cannula 04/06/23 15:00 O2 Flow Rate 1 04/06/23 15:00 Vital Signs Temp Pulse Resp BP Pulse Ox 04/07/23 16:00 95 18 167/83 94 04/07/23 16:41 17 04/07/23 12:10 17 04/07/23 11:22 97.9 F 79 183/83 91 04/07/23 07:51 98.4 F 83 17 185/94 90 04/07/23 05:55 73 04/07/23 05:50 18 2 L Intake & Output/Weight 04/05/23 04/06/23 04/07/23 04/08/23 06:59 06:59 06:59 06:59 Intake Total 4297.956 / 4297.956 3281.623 / 3281.623 2881.25 / 2881.25 1720.208 / 1720.208 Output Total 1000 / 1000 3400 / 3400 3700 / 3700 2950 / 2950 Balance 3297.956 / 3297.956 -118.377 / -118.377 -818.75 / -818.75 -1229.792 / - 1229.792 Weight 93.894 kg 95.424 kg Vitals Last Vital Signs Temp 97.9 F 04/07/23 11:22 Pulse 95 04/07/23 16:00 Resp 17 04/07/23 16:41 BP 167/83 04/07/23 16:00 Pulse Ox 94 04/07/23 16:00 O2 Del Method Nasal Cannula 04/06/23 15:00 O2 Flow Rate 1 04/06/23 15:00 TS Medications Medications Acetaminophen (Acetaminophen 325 Mg Tablet) 650 mg PO Q6H PRN PRN Reason: MILD PAIN Last Admin: 04/06/23 10:05 Dose: 650 mg Albuterol/Ipratropium (Ipratropium-Albuterol 3 Ml Neb) 3 ml INHALATION Q6H PRN PRN Reason: SHORTNESS OF BREATH Amlodipine Besylate (Amlodipine 5 Mg Tablet) 5 mg PO DAILY [facility] Last Admin: 04/07/23 12:03 Dose: 5 mg Dextrose (Dextrose 50% Syringe 50 Ml) 50 ml IVP PRN PRN; Protocol PRN Reason: hypoglycemia protocol Dextrose (Dextrose 50% Syringe 50 Ml) 25 ml IVP ONCE PRN; Protocol PRN Reason: hypoglycemia protocol Gabapentin (Gabapentin 300 Mg Capsule) 300 mg PO TID [facility] Last Admin: 04/07/23 15:16 Dose: 300 mg Glucagon (Glucagon 1 Mg/Ml Inj 1 Ml) 1 mg IM ONCE PRN; Protocol PRN Reason: Adult Acute Hypoglycemia Prot. Heparin Sodium (Porcine) (Heparin 5,000 Unit/Ml Inj 1 Ml) 5,000 unit SUBCUT Q12H [facility] Last Admin: 04/07/23 08:41 Dose: 5,000 unit Dextrose (D5w) 500 mls @ 100 mls/hr IV ONCE PRN; Protocol PRN Reason: Adult Acute Hypoglycemia Prot Vancomycin/PEG/NADA/Lysine/Water (Vancocin) 1,250 mg in 250 mls @ 250 mls/hr IV Q12H [facility] Last Infusion: 04/07/23 13:10 Dose: Infused Insulin Human Lispro (Insulin Lispro 100 Unit/1 Ml) 0 unit SUBCUT TIDWM [facility]; Protocol Last Admin: 04/07/23 17:28 Dose: Not Given Ondansetron HCl (Ondansetron 2 Mg/Ml Sdv 2 Ml) 4 mg IVP Q6H PRN PRN Reason: NAUSEA AND VOMITING Oxycodone HCl (Oxycodone 5 Mg Ir Tab/Cap) 5 mg PO Q4H PRN PRN Reason: MODERATE PAIN Last Admin: 04/07/23 16:41 Dose: 5 mg Pantoprazole Sodium (Pantoprazole Dr 40 Mg Tablet) 40 mg PO DAILY DEBORAH Discontinued Medications Sodium Chloride (Sodium Chloride 0.9%) 2,789.58 mls @ 2,789.58 mls/hr 30 ml/kg infuse over 1 hr (2789.58 ml) IV .Q1H ONE Stop: 04/04/23 18:06 Last Infusion: 04/04/23 19:46 Dose: Infused Vancomycin HCl 1,000 mg/ (Sodium Chloride) 250 mls @ 250 mls/hr IV [employer] ONE Stop: 04/04/23 19:10 Last Infusion: 04/04/23 21:55 Dose: Infused Cefepime HCl 1,000 mg/ Sodium (Chloride) 50 mls @ 100 mls/hr IV ONCE ONE; Protocol Stop: 04/04/23 19:38 Last Infusion: 04/04/23 20:55 Dose: Infused Sodium Chloride (Sodium Chloride 0.9%) 1,000 mls @ 125 mls/hr IV .Q8H [facility] Last Infusion: 04/05/23 22:00 Dose: Infused Piperacillin Sod/Tazobactam (Sod 3.375 gm/ Sodium Chloride) 50 mls @ 12.5 mls/hr IV Q8H [facility]; Protocol Last Infusion: 04/07/23 11:06 Dose: Infused Norepinephrine Bitartrate 4 mg (/ Dextrose) 254 mls @ 0 mls/hr IV .Q0M DEBORAH; Protocol Last Titration: 04/05/23 19:00 Dose: Infused Vancomycin HCl 1,000 mg/ (Sodium Chloride) 250 mls @ 250 mls/hr IV Q24H [facility] Last Infusion: 04/05/23 22:00 Dose: Infused Sodium Chloride (Sodium Chloride 0.9%) 1,000 mls @ 75 mls/hr IV .[id number] [facility] Last Infusion: 04/07/23 14:51 Dose: Infused Vancomycin/PEG/NADA/Lysine/Water (Vancocin) 1,250 mg in 250 mls @ 250 mls/hr IV Q18H DEBORAH Last Admin: 04/07/23 13:17 Dose: Not Given Iohexol (Iohexol 350 Mg/Ml 500 Ml Btl (Per Ml)) 0 ml IV ONCE ONE Stop: 04/07/23 11:47 Last Admin: 04/07/23 11:47 Dose: 80 ml Ketorolac Tromethamine (Ketorolac 30 Mg/Ml Inj) 15 mg IVP ONCE ONE Stop: 04/04/23 19:41 Last Admin: 04/04/23 19:49 Dose: 15 mg Midazolam HCl (Midazolam 1 Mg/Ml Inj 2 Ml) Confirm Administered Dose 2 mg .ROUTE .STK-MED ONE Stop: 04/06/23 06:54 Pantoprazole Sodium (Pantoprazole 40 Mg Sdv) 40 mg IVP DAILY DEBORAH Last Admin: 04/07/23 08:41 Dose: 40 mg Propofol (Propofol 10 Mg/Ml Sdv 20 Ml) Confirm Administered Dose 600 mg .ROUTE .STK-MED ONE Stop: 04/06/23 06:54 Allergies metoprolol Allergy (Mild, Verified 04/04/23 16:31) lathargic Home Medications Diabetic shoes with inserts #1 11/18/20 [Rx Confirmed 04/05/23] amlodipine 10 mg tablet 10 mg PO QAM 11/18/20 [History Confirmed 04/05/23] cam boot #1 ea 11/18/20 [Rx Confirmed 04/05/23] hydrochlorothiazide 25 mg tablet 25 mg PO QAM 11/18/20 [History Confirmed 04/05/23] non articulating AFO #1 ea 11/18/20 [Rx Confirmed 04/05/23] omeprazole 40 mg capsule,delayed release 40 mg PO DAILY 11/18/20 [History Co nfirmed 04/05/23] insulin glargine 100 unit/mL subcutaneous solution (Lantus U-100 Insulin) 40 unit SUBCUT QA 01/05/21 [History Confirmed 04/05/23] Non Articulating AFO #1 ea 02/24/21 [Rx Confirmed 04/05/23] Diabetic shoes #1 ea 02/25/21 [Rx Confirmed 04/05/23] blood sugar diagnostic (Accu-Chek SmartView Test Strips) #100 ea 07/08/21 [Rx Confirmed 04/05/23] Crutch bottoms bilaterally #1 ea 07/24/21 [Rx Confirmed 04/05/23] albuterol sulfate 90 mcg/actuation aerosol inhaler 2 puff inhalation QID PRN Shortness Of Breath 09/29/21 [History Confirmed 04/05/23] sildenafil 100 mg tablet 100 mg PO PRN PRN Erectile Dysfunction 09/29/21 [History Confirmed 04/05/23] sertraline 100 mg tablet 150 mg PO DAILY 12/09/21 [History Confirmed 04/05/23] Cam boot to the left #1 ea 01/20/22 [Rx Confirmed 04/05/23] cam boot to the left #1 ea 01/03/23 [Rx Confirmed 04/05/23] alogliptin 12.5 mg tablet 12.5 mg PO DAILY 01/27/23 [History Confirmed 04/05/23] lisinopril 40 mg tablet 40 mg PO DAILY 01/27/23 [History Confirmed 04/05/23] Crutches #1 ea 03/02/23 [Rx Confirmed 04/05/23] sulfamethoxazole 800 mg-trimethoprim 160 mg tablet (Bactrim DS) 1 tab PO BID 14 days #28 tabs 03/31/23 [Rx Confirmed 04/05/23] gabapentin 300 mg capsule 300 mg PO TID 04/05/23 [History Confirmed 04/05/23] omega-3 fatty acids 1,000 mg capsule 1,000 mg PO BID 04/05/23 [History Confirmed 04/05/23] oxybutynin chloride 5 mg tablet 5 mg PO BEDTIME PRN Spasms 04/05/23 [History Confirmed 04/05/23] oxycodone 15 mg tablet 15 mg PO Q4H PRN pain 04/05/23 [History Confirmed 04/05/23] oxycodone-acetaminophen 10 mg-325 mg tablet 1 tab PO Q6H PRN Pain 04/05/23 [History Confirmed 04/05/23] tamsulosin 0.4 mg capsule (Flomax) 0.4 mg PO DAILY 04/05/23 [History Confirmed 04/05/23] Discharge Plan Discharge Patient Disposition: Xfer Short-Term Hosp Condition: Stable Prescriptions: No Action (DME) Non Articulating AFO See Rx Instructions .Route .MEDSUPPLY Qty: 1 0RF Rx Instructions: As directed [employer] (DME) Accu-Chek SmartView Test Strip Strip See Rx Instructions .Route Qty: 100 3RF Rx Instructions: As directed (DME) Cam boot to the left See Rx Instructions .Route .MEDSUPPLY Qty: 1 0RF Rx Instructions: As directed amlodipine 10 mg tablet 10 mg PO QAM omeprazole 40 mg capsule,delayed release(DR/EC) 40 mg PO DAILY hydrochlorothiazide 25 mg tablet 25 mg PO QAM (DME) non articulating AFO See Rx Instructions .Route .MEDSUPPLY Qty: 1 0RF Rx Instructions: As directed [place] Diabetic shoes with inserts See Rx Instructions .Route .MEDSUPPLY Qty: 1 0RF Rx Instructions: As directed ([facility]) cam boot See Rx Instructions .Route .MEDSUPPLY Qty: 1 0RF Rx Instructions: As directed Lantus U-100 Insulin 100 unit/mL solution 40 unit SUBCUT QAM ([facility]) Crutch bottoms bilaterally See Rx Instructions .Route .MEDSUPPLY Qty: 1 0RF Rx Instructions: As directed by HOME sertraline 100 mg tablet 150 mg PO DAILY ([facility]) cam boot to the left See Rx Instructions .Route .MEDSUPPLY Qty: 1 0RF Rx Instructions: As directed sulfamethoxazole-trimethoprim [Bactrim DS] 800-160 mg tablet 1 tab PO BID 14 Days Qty: 28 0RF ([facility]) Diabetic shoes See Rx Instructions .Route .MEDSUPPLY Qty: 1 0RF Rx Instructions: Extra-depth with 3 inserts Made by [employer] ([facility]) Crutches See Rx Instructions .Route .MEDSUPPLY Qty: 1 0RF Rx Instructions: As directed HOME sildenafil 100 mg Tablet 100 mg PO PRN PRN (Reason: Erectile Dysfunction) albuterol sulfate 90 mcg/actuation Hfa Aerosol Inhaler 2 puff INHALATION QID PRN (Reason: Shortness Of Breath) gabapentin 300 mg Capsule 300 mg PO TID Fish Oil Concentrate 1,000 mg Capsule 1,000 mg PO BID oxycodone-acetaminophen 10-325 mg tablet 1 tab PO Q6H PRN (Reason: Pain) Flomax 0.4 mg Capsule 0.4 mg PO DAILY oxybutynin chloride 5 mg Tablet 5 mg PO BEDTIME PRN (Reason: Spasms) oxycodone 15 mg tablet 15 mg PO Q4H MDD 6 tabs PRN (Reason: pain) lisinopril 40 mg Tablet 40 mg PO DAILY alogliptin 12.5 mg Tablet 12.5 mg PO DAILY Discharge Orders: Transfer Out of Facility (Order); Ordered 04/07/23 Ordered By: Deshawn Jean Referrals: Lisette Alberts FNP [Primary Care Provider] - Transfer Attestations Time Spent in Transfer Care: greater than 30 min Quality Metrics Clinical Quality Measures [ No reported AMI, CVA or VTE this stay] Coding Level of Care Code 05361 Total time (in minutes) for Discharge: 69 Diagnoses Septic shock A41.9; R65.21 NIYA (acute kidney injury) N17.9 Cardiac mass I51.89 Methamphetamine abuse F15.10 Uncontrolled type 2 diabetes mellitus E11.65 Glycemic state: with hyperglycemia Time Spent (min) 69
[2023-04-07 20:49] LABS: Glucose Point of Care 160 mg/dL (70-110)
--- NOTE | 2023-04-07 23:26 | PC.NURSE ---
EMS arrived at 2045 to transport patient to [facility]. EMS took patient.
== END 2023-04-07 21:00 | disposition short-term general hospital (02) | DRG 871 ==
LOC: ER 19:33 → ICU 20:18 → MEDSURG 04-06 20:04
PROVIDERS: Internal Medicine; Admitting Provider Internal Medicine; Emergency Provider Family Medicine; PCP Nurse Practitioner; Visit Provider Internal Medicine
DX: A41.9 Sepsis, unspecified organism (principal); R65.21 Severe sepsis with septic shock; N17.9 Acute kidney failure, unspecified; E11.65 Type 2 diabetes mellitus with hyperglycemia; Z79.4 Long term (current) use of insulin; Z79.891 Long term (current) use of opiate analgesic; F15.10 Other stimulant abuse, uncomplicated; F17.210 Nicotine dependence, cigarettes, uncomplicated; J44.9 Chronic obstructive pulmonary disease, unspecified; D64.9 Anemia, unspecified; D72.829 Elevated white blood cell count, unspecified; I51.9 Heart disease, unspecified; E11.22 Type 2 diabetes mellitus with diabetic chronic kidney disease; I12.9 Hypertensive chronic kidney disease with stage 1 through stage 4 chronic kidney disease, or unspecified chronic kidney disease; N18.9 Chronic kidney disease, unspecified; E86.0 Dehydration; R09.02 Hypoxemia
CPT/HCPCS: 36415; 36416; 36556; 36592; 51702; 71045; 71250; 71275; 74176; 80053; 80306; 81003; 82274; 82728; 82962; 83540; 83550; 83605; 83735; 84145; 85025; 85610; 85651; 87040; 87086; 87641; 93005; 93306; 93312; 93320; 93325; 93970; 96365; 96372; 96375; 96376; 99024; 99285; C9113; J0692; J1644; J1815; J1885; J2250; J2543; J2704; J3370; J7030; J7050; J7060; Q9967

== ENCOUNTER → 2023-04-25 15:46 | Outpatient (BNVA) | payer OTHER, SELFPAY | PROVIDERS: PCP Nurse Practitioner; Visit Provider Podiatrist Foot & Ankle Surgery | DX: Z98.890 Other specified postprocedural states (principal); Q66.30 Other congenital varus deformities of feet, unspecified foot; T81.31XA Disruption of external operation (surgical) wound, not elsewhere classified, initial encounter; Y83.8 Other surgical procedures as the cause of abnormal reaction of the patient, or of later complication, without mention of misadventure at the time of the procedure; Z91.199 Patient's noncompliance with other medical treatment and regimen due to unspecified reason | CPT/HCPCS: 73630; 99213 ==

== ENCOUNTER → 2023-05-05 14:18 | Outpatient (BNVA) | payer OTHER, SELFPAY | PROVIDERS: PCP Nurse Practitioner; Visit Provider Podiatrist Foot & Ankle Surgery | DX: T81.31XA Disruption of external operation (surgical) wound, not elsewhere classified, initial encounter (principal); Y83.8 Other surgical procedures as the cause of abnormal reaction of the patient, or of later complication, without mention of misadventure at the time of the procedure; Z51.89 Encounter for other specified aftercare; M21.6X2 Other acquired deformities of left foot; M21.179 Varus deformity, not elsewhere classified, unspecified ankle; Z98.890 Other specified postprocedural states; Z91.199 Patient's noncompliance with other medical treatment and regimen due to unspecified reason | CPT/HCPCS: 87070; 87075; 87077; 87186; 87205; 99213 ==

== ENCOUNTER → 2023-06-09 15:24 | Outpatient (BNVA) | payer OTHER, SELFPAY | PROVIDERS: PCP Nurse Practitioner; Visit Provider Podiatrist Foot & Ankle Surgery | DX: Z98.890 Other specified postprocedural states (principal); M21.6X2 Other acquired deformities of left foot; M21.172 Varus deformity, not elsewhere classified, left ankle; T81.31XA Disruption of external operation (surgical) wound, not elsewhere classified, initial encounter; Y83.8 Other surgical procedures as the cause of abnormal reaction of the patient, or of later complication, without mention of misadventure at the time of the procedure; Z91.199 Patient's noncompliance with other medical treatment and regimen due to unspecified reason | CPT/HCPCS: 73630; 99213 ==

== ENCOUNTER → 2023-07-05 11:37 | Outpatient (BNVA) | payer OTHER, SELFPAY | PROVIDERS: PCP Nurse Practitioner; Visit Provider Podiatrist Foot & Ankle Surgery | DX: Z98.890 Other specified postprocedural states; Q66.02 Congenital talipes equinovarus, left foot; T81.31XA Disruption of external operation (surgical) wound, not elsewhere classified, initial encounter; Y83.8 Other surgical procedures as the cause of abnormal reaction of the patient, or of later complication, without mention of misadventure at the time of the procedure; Z91.199 Patient's noncompliance with other medical treatment and regimen due to unspecified reason | CPT/HCPCS: 73630; 99213 ==

== ENCOUNTER → 2023-08-02 15:30 | Outpatient (BNVA) | payer OTHER, SELFPAY | PROVIDERS: PCP Nurse Practitioner; Visit Provider Podiatrist Foot & Ankle Surgery | DX: Z98.890 Other specified postprocedural states (principal); T81.31XD Disruption of external operation (surgical) wound, not elsewhere classified, subsequent encounter; Y83.8 Other surgical procedures as the cause of abnormal reaction of the patient, or of later complication, without mention of misadventure at the time of the procedure; Z91.199 Patient's noncompliance with other medical treatment and regimen due to unspecified reason; Q66.02 Congenital talipes equinovarus, left foot | CPT/HCPCS: 73630; 99213 ==

== ENCOUNTER → 2023-09-13 15:32 | Outpatient (BNVA) | payer OTHER, SELFPAY | PROVIDERS: PCP Nurse Practitioner; Visit Provider Podiatrist Foot & Ankle Surgery | DX: M21.6X2 Other acquired deformities of left foot (principal); Z91.199 Patient's noncompliance with other medical treatment and regimen due to unspecified reason; Z98.890 Other specified postprocedural states; M21.172 Varus deformity, not elsewhere classified, left ankle; T81.31XD Disruption of external operation (surgical) wound, not elsewhere classified, subsequent encounter; Y83.8 Other surgical procedures as the cause of abnormal reaction of the patient, or of later complication, without mention of misadventure at the time of the procedure | CPT/HCPCS: 73610; 99213 ==

== ENCOUNTER → 2023-10-04 14:52 | Outpatient (BNVA) | payer OTHER, SELFPAY | PROVIDERS: PCP Nurse Practitioner; Visit Provider Podiatrist Foot & Ankle Surgery | DX: Z98.890 Other specified postprocedural states (principal); M21.6X2 Other acquired deformities of left foot; M21.172 Varus deformity, not elsewhere classified, left ankle; T81.31XD Disruption of external operation (surgical) wound, not elsewhere classified, subsequent encounter; Z91.199 Patient's noncompliance with other medical treatment and regimen due to unspecified reason; Y83.8 Other surgical procedures as the cause of abnormal reaction of the patient, or of later complication, without mention of misadventure at the time of the procedure; Z79.4 Long term (current) use of insulin | CPT/HCPCS: 99213 ==

== ENCOUNTER 2023-10-13 16:40 | Emergency (ER) | payer OTHER, SELFPAY ==
[2023-10-13 16:54] VITALS: BP 162/92; PULSE 108; RESP 18; TEMP 36.9; O2SAT 96; BMI 29.5
--- NOTE | 2023-10-13 16:55 | XRR_ITS ---
PROCEDURE INFORMATION: Exam: XR Left Foot Exam date and time: 10/13/2023 5:34 PM Age: 62 years old Clinical indication: Pain; Foot; Left; Additional info: Pain swelling TECHNIQUE: Imaging protocol: Radiologic exam of the left foot. Views: 3 or more views. COMPARISON: No relevant prior studies available. FINDINGS: Bones/joints: Extensive fixation hardware in the distal tibial talar joint, hindfoot and midfoot without evidence of hardware failure or loosening. Soft tissue swelling overlying the anterior aspect of the distal tibia. No acute fracture identified. Soft tissues: See Bones/joints finding. XR/XR foot LT min 3V* [id number] IMPRESSION: 1. Extensive fixation hardware in the distal tibial talar joint, hindfoot and midfoot without evidence of hardware failure or loosening. 2. Soft tissue swelling overlying the anterior aspect of the distal tibia. 3. No acute fracture identified.
--- NOTE | 2023-10-13 17:02 | ED_ITS ---
HPI - General Adult 2 General: Chief complaint: Extremity Problem,Nontraumatic Stated complaint: left leg absess Time Seen by Provider: 10/13/23 16:55 Source: patient Mode of arrival: ambulatory History of Present Illness: 62-year-old male presents emergency room with complaints of sinus pain and swelling. He has had a subjective fever at home. He has had some postop complications pain worsened over the last couple of days. He has been on antibiotics since the most recent surgery in August. Onset (ago): minute(s) Severity: mild Relieving factors: none Exacerbating factors: none Associated symptoms: Reports rash; Deny chest pain, confusion, cough, diaphoresis, decreased appetite, dyspnea, fevers/chills, headache(s), malaise, nausea, palpitations, seizures, short of breath, syncope, vomiting or weakness Treatments prior to arrival: none Review of Systems 2 Const: Reports: fever(s) and chills; Denies: malaise or diaphoresis Card: Denies: chest pain, palpitations or syncope Resp: Denies: dyspnea GI: Denies: abdominal pain, nausea or vomiting : Denies: dysuria, urinary frequency or urinary urgency Musc: Denies: neck pain or back pain Skin/Breast: Reports: rash and erythema Neuro: Denies: headache(s) or confusion PFSH ED 2 PFSH: Medical History COPD (chronic obstructive pulmonary disease) Hypertension Emphysema lung Hernia Prostate cancer Thoracic stomach hernia Surgical History History of right hip replacement H/O exploratory thoracotomy H/O heart surgery History of surgery on upper extremity Family History Mother Cancer Father CAD (coronary artery disease) Social History Smoking and tobacco/nicotine status: current every day tobacco/nicotine user (9 cigerettes a day ) cigarettes Packs smoked per day: 1 Quit status (tobacco/nicotine): not considering quitting Second hand smoke exposure: Yes Alcohol intake: current Alcohol intake frequency: few times a week Alcohol type: beer Substance/Drug Use: never Adopted: Yes Caregiver/support person: No Lives independently: Yes Household members: none Housing: Apartment Marital status: Single Number of children: 0 Highest education level completed: GED or Equivalent service: Yes Current occupational status: disabled Pets and animals: Yes Leisure activites: sports, exercise, clubs, art, music, games, hunting, fishing, reading and volunteer work Sexually active: Yes Do you think of yourself as: Straight/Heterosexual Current gender identity: Male Pratima/Sikhism: [employer]ism [employer] Special pratima needs: No Agree to transfusion: Yes Physical Exam 2 Const: GENERAL APPEARANCE: cooperative ORIENTATION/CONSCIOUSNESS: Yes awake, Yes oriented to person, Yes oriented to place and Yes oriented to time HENMT: COMMON NORMALS: normocephalic, atraumatic and hearing grossly normal bilaterally HEAD & SCALP: normocephalic and atraumatic Resp: COMMON NORMALS: normal respiratory effort, No retractions, No use of accessory muscles and clear to auscultation bilaterally AUSCULTATION: clear to auscultation bilaterally Cardio: COMMON NORMALS: regular rate, regular rhythm and No murmurs present (Cardio) RATE: regular rate RHYTHM: regular rhythm GI: COMMON NORMALS: Soft to palpation and No hepatosplenomegaly present A USCULTATION: Yes normoactive bowel sounds PALPATION: Yes Soft to palpation, No Tenderness to palpation present (GI), No Guarding due to palpation present (GI) and Yes No hepatosplenomegaly present Extremity: OTHER: Obvious deformity with inversion of the left ankle no palpable nodules or fluctuant areas is chronically indurated violaceous changes of the skin color. No open wounds or active drainage Medial thigh proximally there is a small area of varicosity noninflamed Neuro: SENSORIUM/ORIENTATION: Yes oriented to person, Yes oriented to place and Yes oriented to time Skin: COMMON NORMALS: no rashes or lesions noted GENERAL SKIN EXAM: no rashes or lesions noted Course 2 Vital Signs: Vital signs: Vital Signs Temperature 98.4 F 10/13/23 16:54 Pulse Rate 104 H 10/13/23 17:29 Respiratory Rate 18 10/13/23 16:54 Blood Pressure 162/92 10/13/23 17:29 Pulse Oximetry 94 10/13/23 17:29 Oxygen Delivery Me thod Room Air 10/13/23 17:29 MDM - General Adult Medical Decision Making Reviewed the case with Dr. Blue who seen him in the past. Dr. Blue happened to be on-call and is going to stop by and see the patient he does not recommend any advanced imaging and said will make arrangements for follow-up. No elevation of white count no sign of infection at this point. The area of concern the patient was referring to I believe is a slight varicosity. Medical Records I reviewed the patient's medical records. Lab Data I reviewed the patient's lab results. 10/13/23 17:17 10/13/23 17:17 Laboratory Results WBC 10.36 10^3/uL (3.29-11.43) 10/13/23 17:17 RBC 4.20 10^6/uL (3.85-5.65) 10/13/23 17:17 Hgb 11.50 g/dL (11.27-16.99) 10/13/23 17:17 Hct 37.8 % (37-53) 10/13/23 17:17 MCV 90.0 fl (82-101) 10/13/23 17:17 MCH 27.4 pg (27-33) 10/13/23 17:17 MCHC 30.4 g/dL (30-55) 10/13/23 17:17 RDW 16.6 % (12.1-15.1) H 10/13/23 17:17 Plt Count 238 10^3/cmm (157-399) 10/13/23 17:17 MPV 10.6 fL (7.4-10.4) H 10/13/23 17:17 Neut % (Auto) 46.6 % 10/13/23 17:17 Lymph % (Auto) 40.2 % 10/13/23 17:17 [place] % (Auto) 7.6 % 10/13/23 17:17 Eos % (Auto) 4.9 % 10/13/23 17:17 Baso % (Auto) 0.4 % 10/13/23 17:17 Neut # (Auto) 4.83 10^3/uL (1.8-7.7) 10/13/23 17:17 Lymph # (Auto) 4.2 10^3/uL (0.8-4.8) 10/13/23 17:17 [place] # (Auto) 0.8 10^3/uL (0.2-0.9) 10/13/23 17:17 Eos # (Auto) 0.5 10^3/uL (0.0-0.8) 10/13/23 17:17 Baso # (Auto) 0.0 10^3/uL (0.0-0.1) 10/13/23 17:17 Nucleated RBC % (auto) 0 % 10/13/23 17:17 Nucleated RBCs # 0.0 /100WBC 10/13/23 17:17 Sodium 133 mmol/L (136-145) L 10/13/23 17:17 Potassium 4.2 mmol/L (3.5-5.1) 10/13/23 17:17 Chloride 101 mmol/L (98-107) 10/13/23 17:17 Carbon Dioxide 20 mmol/L (22-29) L 10/13/23 17:17 Anion Gap 16.2 (5-19) 10/13/23 17:17 BUN 25 mg/dL (8-23) H 10/13/23 17:17 Creatinine 1.7 mg/dL (0.7-1.2) H 10/13/23 17:17 GFR Calculation 40.9 mL/min (90-130) L 10/13/23 17:17 Glucose 265 mg/dL (65-115) H 10/13/23 17:17 Calculated Osmolality 290 mOsm/kg (285-295) 10/13/23 17:17 Calcium 8.8 mg/dL (8.5-10.5) 10/13/23 17:17 Total Bilirubin 0.2 mg/dL (0.15-1.2) 10/13/23 17:17 AST 17 U/L (0-40) 10/13/23 17:17 ALT 16 U/L (0-41) 10/13/23 17:17 Alkaline Phosphatase 108 U/L (40-130) 10/13/23 17:17 Total Protein 6.7 g/dL (6.6-8.7) 10/13/23 17:17 Albumin 3.6 g/dL (3.5-5.2) 10/13/23 17:17 Globulin 3.1 g/dL (1.3-4.6) 10/13/23 17:17 All radiology interpretation(s) finalized by discharge Discharge Plan Discharge Patient Disposition: Home Clinical Impression: S/P foot surgery Condition: Stable Prescriptions: No Action (DME) Accu-Chek SmartView Test Strip Strip See Rx Instructions .Route Qty: 100 3RF Rx Instructions: As directed amlodipine 10 mg tablet 10 mg PO QAM omeprazole 40 mg capsule,delayed release(DR/EC) 40 mg PO DAILY hydrochlorothiazide 25 mg tablet 25 mg PO QAM Lantus U-100 Insulin 100 unit/mL solution 40 unit SUBCUT QAM sertraline 100 mg tablet 150 mg PO DAILY sulfamethoxazole-trimethoprim [Bactrim DS] 800-160 mg tablet 1 tab PO BID 14 Days Qty: 28 0RF (DME) cam walker See Rx Instructions .Route .MEDSUPPLY Qty: 1 0RF Rx Instructions: As directed (DME) AFO See Rx Instructions .Route .MEDSUPPLY Qty: 1 0RF Rx Instructions: As directed made by the adelita hay mupirocin 2 % ointment 1 applic topical BID Qty: 22 3RF Rx Instructions: apply to each nare BID levofloxacin 500 mg tablet 500 mg PO DAILY 7 Days Qty: 7 0RF sulfamethoxazole-trimethoprim [Bactrim DS] 800-160 mg tablet 1 tab PO BID 14 Days Qty: 28 0RF cadexomer iodine 0.9 % gel 40 g topical DAILY Qty: 40 1RF (DME) silicone boarder foam dressing 3 x3 See Rx Instructions .Route .MEDSUPPLY Qty: 1 0RF Rx Instructions: As directed sildenafil 100 mg Tablet 100 mg PO PRN PRN (Reason: Erectile Dysfunction) albuterol sulfate 90 mcg/actuation Hfa Aerosol Inhaler 2 puff INHALATION QID PRN (Reason: Shortness Of Breath) gabapentin 300 mg Capsule 300 mg PO TID Fish Oil Concentrate 1,000 mg Capsule 1,000 mg PO BID Flomax 0.4 mg Capsule 0.4 mg PO DAILY oxybutynin chloride 5 mg Tablet 5 mg PO BEDTIME PRN (Reason: Spasms) lisinopril 40 mg Tablet 40 mg PO DAILY alogliptin 12.5 mg Tablet 12.5 mg PO DAILY Discharge Orders: Discharge ED (Routine); Ordered 10/13/23 Ordered By: Rodney Xavier Referrals: Alberts,Lisette R, IRRIGATION EQUIPMENT REMOVER [Primary Care Provider] - Discharge Diet: Usual diet Discharge Activity: Increase activity as tolerated Patient Instructions: Opioid Safety, Pain Management Activity Restrictions/Additional Instructions: Thank you for choosing [facility] for your healthcare needs today. Please realize this is an emergency room and that we are providing you with a medical screening exam and this may not be complete and all inclusive of all the testing and or work up that you may need to determine your ailment or severity of your illness. It is very important that you follow up as instructed or that you return to the Emergency Department should you have concerns or if your condition changes or worsens in any way. Your white count is normal discussed your case with Dr. Blue he would like to see you in his office tomorrow. Please contact his office and he will make arrangements for follow-up. Coding Level of Care Code ED Market Development Manager for Danni Chavez
[2023-10-13 17:29] VITALS: BP 162/92; PULSE 104; O2SAT 94
[2023-10-13 17:36] LABS: Basophils % 0.4 %; Eosinophils # 0.5 10^3/uL (0.0-0.8); Eosinophils % 4.9 %; Hematocrit 37.8 % (37-53); Lymphocytes # 4.2 10^3/uL (0.8-4.8); Lymphocytes % 40.2 %; Mean Corpuscular HGB Conc 30.4 g/dL (30-55); Mean Corpuscular Hemoglobin 27.4 pg (27-33); Mean Platelet Volume 10.6 fL (7.4-10.4); Monocytes # 0.8 10^3/uL (0.2-0.9); Monocytes % 7.6 %; Neutrophils # 4.83 10^3/uL (1.8-7.7); Neutrophils % 46.6 %; Nucleated Red Blood Cells % 0 %; Platelet Count 238 10^3/cmm (157-399); Red Cell Distribution Width 16.6 % (12.1-15.1); White Blood Count 10.36 10^3/uL (3.29-11.43)
[2023-10-13 17:55] LABS: Alanine Aminotransferase 16 U/L (0-41); Albumin Level 3.6 g/dL (3.5-5.2); Alkaline Phosphatase 108 U/L (40-130); Anion Gap 16.2 (5-19); Aspartate Amino Transferase 17 U/L (0-40); Blood Urea Nitrogen 25 mg/dL (8-23); Calcium 8.8 mg/dL (8.5-10.5); Carbon Dioxide 20 mmol/L (22-29); Chloride 101 mmol/L (98-107); Globulin 3.1 g/dL (1.3-4.6); Glomerular Filtration Rate 40.9 mL/min (90-130); Glucose 265 mg/dL (65-115); Osmolality Calculated 290 mOsm/kg (285-295); Potassium 4.2 mmol/L (3.5-5.1); Sodium 133 mmol/L (136-145); Total Bilirubin 0.2 mg/dL (0.15-1.2); Total Protein 6.7 g/dL (6.6-8.7)
[2023-10-13 18:37] VITALS: BP 139/84; PULSE 101; O2SAT 94
== END 2023-10-13 18:39 | disposition home or self-care (01) ==
PROVIDERS: Emergency Provider Family Medicine; PCP Nurse Practitioner
DX: I83.92 Asymptomatic varicose veins of left lower extremity (principal); Z98.890 Other specified postprocedural states; Z79.4 Long term (current) use of insulin; F17.210 Nicotine dependence, cigarettes, uncomplicated; J44.9 Chronic obstructive pulmonary disease, unspecified; I10 Essential (primary) hypertension; Z85.46 Personal history of malignant neoplasm of prostate
CPT/HCPCS: 36415; 73630; 80053; 85025; 87040; 99284

== ENCOUNTER → 2023-10-25 14:42 | Outpatient (BNVA) | payer OTHER, SELFPAY | PROVIDERS: PCP Nurse Practitioner; Visit Provider Podiatrist Foot & Ankle Surgery | DX: M21.6X2 Other acquired deformities of left foot (principal); Z91.199 Patient's noncompliance with other medical treatment and regimen due to unspecified reason; Z98.890 Other specified postprocedural states; M21.172 Varus deformity, not elsewhere classified, left ankle; T81.31XD Disruption of external operation (surgical) wound, not elsewhere classified, subsequent encounter; F15.10 Other stimulant abuse, uncomplicated; Y83.8 Other surgical procedures as the cause of abnormal reaction of the patient, or of later complication, without mention of misadventure at the time of the procedure | CPT/HCPCS: 36415; 80053; 85025; 85651; 86140; 99213 ==

== ENCOUNTER → 2023-11-03 13:55 | Outpatient (BNVA) | payer OTHER, SELFPAY | PROVIDERS: PCP Nurse Practitioner; Visit Provider Podiatrist Foot & Ankle Surgery | DX: M21.6X2 Other acquired deformities of left foot (principal); M21.172 Varus deformity, not elsewhere classified, left ankle; T81.31XD Disruption of external operation (surgical) wound, not elsewhere classified, subsequent encounter; Z91.199 Patient's noncompliance with other medical treatment and regimen due to unspecified reason; Z98.890 Other specified postprocedural states; F15.10 Other stimulant abuse, uncomplicated; Y83.8 Other surgical procedures as the cause of abnormal reaction of the patient, or of later complication, without mention of misadventure at the time of the procedure | CPT/HCPCS: 99213 ==

== ENCOUNTER → 2023-11-17 12:47 | Outpatient (BNVA) | payer OTHER, SELFPAY | PROVIDERS: PCP Nurse Practitioner; Visit Provider Podiatrist Foot & Ankle Surgery | DX: M21.6X2 Other acquired deformities of left foot (principal); M21.172 Varus deformity, not elsewhere classified, left ankle; T81.31XD Disruption of external operation (surgical) wound, not elsewhere classified, subsequent encounter; Z91.199 Patient's noncompliance with other medical treatment and regimen due to unspecified reason; F15.10 Other stimulant abuse, uncomplicated; Z98.890 Other specified postprocedural states; Y83.8 Other surgical procedures as the cause of abnormal reaction of the patient, or of later complication, without mention of misadventure at the time of the procedure | CPT/HCPCS: 99213 ==

== ENCOUNTER → 2023-12-15 13:03 | Outpatient (BNVA) | payer OTHER, MEDICAID, SELFPAY | PROVIDERS: PCP Nurse Practitioner; Visit Provider Podiatrist Foot & Ankle Surgery | DX: M21.172 Varus deformity, not elsewhere classified, left ankle (principal); T81.31XD Disruption of external operation (surgical) wound, not elsewhere classified, subsequent encounter; Z91.199 Patient's noncompliance with other medical treatment and regimen due to unspecified reason; F15.10 Other stimulant abuse, uncomplicated; Y79.2 Prosthetic and other implants, materials and accessory orthopedic devices associated with adverse incidents | CPT/HCPCS: 99213 ==

== ENCOUNTER → 2023-12-30 13:06 | Outpatient (BNVA) | payer OTHER, MEDICAID, SELFPAY | PROVIDERS: PCP Nurse Practitioner; Visit Provider Podiatrist Foot & Ankle Surgery | DX: M21.172 Varus deformity, not elsewhere classified, left ankle (principal); Z91.199 Patient's noncompliance with other medical treatment and regimen due to unspecified reason; F15.10 Other stimulant abuse, uncomplicated | CPT/HCPCS: 29580; 99213 ==

== ENCOUNTER → 2024-01-06 12:36 | Outpatient (BNVA) | payer OTHER, MEDICAID, SELFPAY | PROVIDERS: PCP Nurse Practitioner; Visit Provider Podiatrist Foot & Ankle Surgery | DX: M21.172 Varus deformity, not elsewhere classified, left ankle (principal); Z91.199 Patient's noncompliance with other medical treatment and regimen due to unspecified reason; F15.10 Other stimulant abuse, uncomplicated | CPT/HCPCS: 99213 ==

== ENCOUNTER → 2024-01-16 14:20 | Outpatient (BNVA) | payer OTHER, MEDICAID, SELFPAY | PROVIDERS: PCP Nurse Practitioner; Visit Provider Podiatrist Foot & Ankle Surgery | DX: Z51.89 Encounter for other specified aftercare (principal); M21.172 Varus deformity, not elsewhere classified, left ankle; Z91.199 Patient's noncompliance with other medical treatment and regimen due to unspecified reason; F15.10 Other stimulant abuse, uncomplicated | CPT/HCPCS: 99213 ==

== ENCOUNTER → 2024-02-07 14:21 | Outpatient (BNVA) | payer OTHER, MEDICAID, SELFPAY | PROVIDERS: PCP Nurse Practitioner; Visit Provider Podiatrist Foot & Ankle Surgery | DX: M21.172 Varus deformity, not elsewhere classified, left ankle (principal); Z91.199 Patient's noncompliance with other medical treatment and regimen due to unspecified reason; F15.10 Other stimulant abuse, uncomplicated | CPT/HCPCS: 99213 ==

== ENCOUNTER → 2024-03-06 14:49 | Outpatient (BNVA) | payer OTHER, MEDICAID, SELFPAY | PROVIDERS: PCP Nurse Practitioner; Visit Provider Podiatrist Foot & Ankle Surgery | DX: M21.172 Varus deformity, not elsewhere classified, left ankle (principal); Z91.199 Patient's noncompliance with other medical treatment and regimen due to unspecified reason; F15.10 Other stimulant abuse, uncomplicated; R60.0 Localized edema; E11.65 Type 2 diabetes mellitus with hyperglycemia; Z79.4 Long term (current) use of insulin | CPT/HCPCS: 99213 ==

== ENCOUNTER → 2024-03-22 13:14 | Outpatient (BNVA) | payer OTHER, SELFPAY | PROVIDERS: PCP Nurse Practitioner; Visit Provider Podiatrist Foot & Ankle Surgery | DX: M21.172 Varus deformity, not elsewhere classified, left ankle (principal); Z91.199 Patient's noncompliance with other medical treatment and regimen due to unspecified reason; F15.10 Other stimulant abuse, uncomplicated; R60.0 Localized edema; E11.65 Type 2 diabetes mellitus with hyperglycemia; Z79.4 Long term (current) use of insulin | CPT/HCPCS: 99213 ==